=== PATIENT | female | born 1955 | race Caucasian/White ===

== ENCOUNTER 2019-07-08 12:07 | Emergency (ER) | payer BC, MEDICARE ==
[~2019-07-08] VITALS: Ht 162.6 cm; Wt 63.2 kg
[~2019-07-08 12:07] MED LIST: ARMOUR THYROID60 M1 PO; BUSPAR 15 MG TA15 MG PO; LOVASTATIN40 MG PO; MOBIC7.5 MG PO; PRILOSEC20 MG PO; RISPERDAL0.5 MG PO; ULTRAM50 MG PO
[2019-07-08 12:35] VITALS: Ht 162.6 cm; Wt 63.2 kg
[2019-07-08] MEDS ORDERED: BAYER CHEWABLE81 MG PO (12:38)
[2019-07-08 13:07] LABS: BASOPHILS 0.4 % (0-2); EOSINOPHILS 1.2 % (0-7); HEMOGLOBIN 14.5 g/dL (12-16); IMMATURE GRANULOCYTES 0.3 % (0-5); LYMPHOCYTES 21.3 % (15-50); MCH 31.2 pg (26.0-34.0); MCV 94.6 fL (80.0-100.0); MEAN PLATELET VOLUME 8.7 fL (7.4-10.4); MONOCYTES 6.2 % (2-11); NEUTROPHILS 70.6 % (40-80); RBC 4.65 10x6/uL (4.00-5.40); RDW 13.5 % (11.5-14.5); WBC 10.7 10x3/uL (4.8-10.8)
[2019-07-08 13:13] LABS: PLATELET COUNT 380 10x3/uL (130-400)
[2019-07-08 13:55] LABS: ALBUMIN 3.4 g/dL (3.4-5.0); ANION GAP 11.6 mmol/L (8-16); BILIRUBIN - TOTAL 0.23 mg/dL (0.2-1.3); CALCIUM 8.5 mg/dL (8.5-10.1); CARBON DIOXIDE 29.7 mmol/L (21.0-32.0); POTASSIUM - SERUM 4.3 mmol/L (3.5-5.1); PROTEIN - SERUM 6.9 g/dL (6.4-8.2)
[2019-07-08 16:48] VITALS: BP 129/80
== END 2019-07-08 16:48 | disposition home or self-care (01) ==
LOC: D.ER 12:07
PROVIDERS: Family Medicine
DX: M71.22 Synovial cyst of popliteal space [Baker], left knee (principal)

== ENCOUNTER 2019-07-17 08:00 | Outpatient (CLI) | payer BC ==
[2019-07-08 12:35] VITALS: BMI 23.9
[~2019-07-17 08:00] MED LIST changes: +BAYER CHEWABLE81 MG PO
== END 2019-07-17 23:59 | disposition home or self-care (01) ==
LOC: D.MAMMO 08:00
PROVIDERS: ATTEND Emergency Medicine
DX: Z12.31 Encounter for screening mammogram for malignant neoplasm of breast (principal)

== ENCOUNTER 2019-10-22 20:04 | Observation (INO) | payer BC, MEDICARE ==
[~2019-10-22] VITALS: Ht 162.6 cm; Wt 62.6 kg
[2019-10-22 21:24] LABS: BASOPHILS 0.4 % (0-2); EOSINOPHILS 1.1 % (0-7); HEMATOCRIT 39.9 % (36.0-48.0); HEMOGLOBIN 13.4 g/dL (12-16); IMMATURE GRANULOCYTES 0.2 % (0-5); MCH 30.9 pg (26.0-34.0); MCHC 33.6 g/dL (31.0-37.0); MCV 92.1 fL (80.0-100.0); MEAN PLATELET VOLUME 8.7 fL (7.4-10.4); MONOCYTES 6.3 % (2-11); PLATELET COUNT 363 10x3/uL (130-400); RBC 4.33 10x6/uL (4.00-5.40); RDW 13.8 % (11.5-14.5)
[2019-10-22 21:30] LABS: APTT 27.5 SECONDS (22.8-39.4); CALC OSMOLALITY 286 mosm/kg (275-300); CALCIUM 8.1 mg/dL (8.5-10.1); CHLORIDE - SERUM 106 mmol/L (98-107); GLUCOSE 99 mg/dL (74-106); POTASSIUM - SERUM 3.3 mmol/L (3.5-5.1); PROTIME 13.1 SECONDS (11.6-15.0); SODIUM 142 mmol/L (136-145); UREA NITROGEN 23 mg/dL (7-18); eGFR NON AFRICAN AMERICAN 59 mL/min (90-120)
[2019-10-22 21:47] LABS: ALKALINE PHOSPHATASE 135 U/L (30-120); ALT (SGPT) 18 U/L (10-68); BILIRUBIN - TOTAL 0.14 mg/dL (0.2-1.3); CKMB 4.5 U/L (0.0-3.6); CREATINE KINASE 163 UL (21-215); PRO BNP 104 pg/mL (0-125); PROTEIN - SERUM 6.7 g/dL (6.4-8.2)
[2019-10-22 21:51] LABS: TROPONIN-I < 0.017 ng/mL (0.000-0.060)
--- NOTE | 2019-10-22 22:30 | NUR ---
PT LEFT ED VIA STRETCHER FOR CT.
--- NOTE | 2019-10-22 22:48 | NUR ---
PT RETURNED FROM CT VIA STRETCHER.
[2019-10-23 00:38] VITALS: BP 151/77
--- NOTE | 2019-10-23 01:01 | NUR ---
ADMIT TO ROOM 2117 FROM ER FOR ATYPICAL CHEST PAIN. ALERT/ORIENTED/AMBULATORY. ADMISSION HISTORY AND ASSESSMENT COMPLETED. HOME MEDS REVIEWED. PLAN OF CARE INITIATED. TELEMETRY INITIATED.
[2019-10-23] MEDS ORDERED: LUNESTA1 MG PO (01:32)
[2019-10-23] MEDS ORDERED: NEURONTIN 300300 MG PO (01:34)
[2019-10-23 02:18] VITALS: BP 166/95; BMI 23.7
[2019-10-23 04:00] VITALS: BP 118/66
[2019-10-23 06:58] LABS: CKMB 3.5 U/L (0.0-3.6); CREATINE KINASE 143 UL (21-215); TROPONIN-I < 0.017 ng/mL (0.000-0.060)
--- NOTE | 2019-10-23 09:15 | NUR ---
LEAVING FOR STRESS TEST BY W/C. WILL CONT. PLAN OF CARE.
[2019-10-23 09:54] VITALS: BP 153/92
[2019-10-23 13:00] VITALS: BP 147/85
--- NOTE | 2019-10-23 13:18 | NUR ---
BACK TO UT FOR 2ND HALF STRESS TEST.
[2019-10-23 15:27] VITALS: Ht 162.6 cm; Wt 62.6 kg
[2019-10-23 16:51] VITALS: BP 160/87
--- NOTE | 2019-10-23 17:20 | HP ---
PATIENT: ANÍBAL KENNEDY MEDICAL RECORD: [id number] ACCOUNT: [id number] LOCATION:[address] : [birth year] ADMISSION DATE: 10/23/19 PCP: SANDRA MCKNIGHT MD HISTORY AND PHYSICAL EXAMINATION DIAGNOSES: 1. Chest pain compatible with angina. 2. Hypertension. 3. Family history of coronary artery disease. HISTORY OF PRESENT ILLNESS: Mrs. Kennedy has no history of ischemic heart disease. For the last week, she has been having episodes of chest discomfort compatible with angina, dull aching pressure-like sensation across the anterior chest, a band-like sensation across the chest. She has a family history of coronary artery disease. She has been hypertensive since she has been here. She does not have a history of hypertension. She does not have a history of hyperlipidemia. She does have a smoking history. PHYSICAL EXAMINATION: CONSTITUTIONAL/GENERAL APPEARANCE: Well nourished, well developed, appears stated age. EYES: Lids and conjunctivae noninjected. No discharge. No pallor. ENT: Lips within normal limit. No cyanosis. No pallor. NECK: Carotid arteries, bilateral normal upstroke. No bruits. No thrills. No jugular venous pressure or distention. CERVICAL LYMPH NODES: Nontender. Nonenlarged. THYROID: Not enlarged. No nodules. CARDIOVASCULAR: Precordial exam, nondisplaced. No heaves or pericardial thrills. Rate and rhythm, regular. Heart sounds, normal S1, normal S2. No S3, no gallop, no rub. Systolic murmur, not heard. Diastolic murmur, not heard. RESPIRATORY: Respiratory effort, unlabored. Normal curvature. No thoracic deformity. No chest wall tenderness. Percussion, resonant. Auscultation, clear. No wheezes, no rales, no rhonchi. ABDOMEN: Soft, nondistended, nontender. No abdominal pain, no vomiting and normal appetite. MUSCULOSKELETAL: No joint tenderness, normal gait, normal tone. SKIN: Warm and dry. OVERALL IMPRESSION: Chest pain compatible with angina. We will proceed with risk stratify with stress testing Cardiolite imaging. Further care depends upon the findings of stress test. TRANSINT:[id number] Voice Confirmation ID: [id number] DOCUMENT ID: [id number] HISTORY AND PHYSICAL [id number] JOANIEADÁNANÍBALPADMA MORTON MD at 1720 CC: [id number] DICTATION DATE: 10/23/19 0938 UTILIZATION REVIEW RN: 10/23/19 1037 ADM IN [place] [id number] [place] [id number]
--- NOTE | 2019-10-23 18:05 | NUR ---
IV AND TELEMETRY DCD. DC PLANS GIVEN. UNDERSTANDING VOICED. ESCORTED TO CAR BY W/C.
--- NOTE | 2019-10-24 08:05 | MORECARE ---
CASE MANAGEMENT DISCHARGE SUMMARY PATIENT: ANÍBAL NAIR BELKYS UNIT: [id number] ADM DATE: 10/23/19 AGE: 63 : 51 SEX: F ROOM/BED: D.9057 AUTHOR: CINDY LARKIN PHYSICIAN: REFERRING PHYSICIAN: PADMA MCDANIELS MD DATE OF SERVICE: 10/24/19 Discharge Plan Patient Name: AN[facility]BAL NAIR [facility] [facility] 1955 Planned Disposition: Home Anticipated Discharge Date: 10/23/19 Discharge Date: 10/23/2019 Expected LOS: 1 Initial Reviewer: [email or web address] Initial Review Date: 10/24/2019 Generated: 10/24/19 9:04 am Patient Name: ANÍBAL NAIR Page [id number] at 0805 All edits/amendments must be made on the electronic document DICTATION DATE: 10/24/19 0804 CISCO NETWORK ENGINEER: ILIANA 10/24/19 0804 RPT#: [id number] DC DATE:10/23/19 STATUS: DIS IN [facility] [address] [place] [address] END OF REPORT
--- NOTE | 2019-10-24 11:25 | ST ---
PATIENT:ANÍBAL NAIR MEDICAL RECORD: [id number] SEX: F [facility] ORDER #: ADMISSION DATE: 10/23/19 AGE OF PATIENT: 63 REFERRING PHYSICIAN: INTERPRETING PHYSICIAN: PADMA MCDANIELS MD DATE OF SERVICE: 10/23/2019 PROCEDURE: Nuclear stress test. INDICATION: Chest pain. TECHNIQUE: She was exercised on standard Lexiscan protocol with 30 mCi of sestamibi injected at peak stress, 10 mCi used previously for rest images. FINDINGS: Gated SPECT reveals preserved ejection fraction at 51% with good wall motion and thickening and brightening throughout all segments. SPECT imaging Cardiolite was used as myocardial fusion agent. There is homogeneous uptake throughout all segments at rest and stress with no evidence of inducible ischemia or previous infarction. OVERALL IMPRESSION: 1. This is a normal nuclear stress test with no evidence of inducible ischemia or previous infarction. 2. Gated SPECT reveals a preserved ejection fraction at 51%. In this patient with ongoing symptomatology, the current scan does not suggest the presence of hemodynamically significant coronary artery disease. Evaluate noncardiac etiology of chest pain. TRANSINT:[id number] Voice Confirmation ID: [id number] DOCUMENT ID: [id number] PADMA MCDANIELS MD at 1125 CC: [id number] DICTATION DATE: 10/23/19 1719 INCIDENT RESPONSE LEAD: 10/24/19 0812 DIS IN 10/23/19 [place] [id number] [place] [address]
--- NOTE | 2019-10-24 11:25 | DS ---
PATIENT:ANÍBAL NAIR :51 MEDICAL RECORD: [id number] DISCHARGE SUMMARY ADMISSION DATE: 10/23/19 DISCHARGE DATE: 10/23/19 DIAGNOSES: 1. Chest pain. 2. Nuclear stress test. Ms. Nair presents with chest pain; however, nuclear stress test was absolutely normal. Discharged home with no change in her medication and follow up on a p.r.n. basis. TRANSINT:[id number] Voice Confirmation ID: [id number] DOCUMENT ID: [id number] PADMA MCDANIELS MD at 1125 CC: [id number] DICTATION DATE: 10/23/19 1718 THIRD RIGGER: 10/24/19 0802 DIS IN 10/23/19 [place] [address] [place] [address]
== END 2019-10-23 18:06 | disposition home or self-care (01) ==
LOC: D.ER 20:04 → OBSVTIME 10-23 00:04 → D.M2 10-23 00:04
PROVIDERS: Emergency Medicine; ADMIT Internal Medicine Interventional Cardiology; ATTEND Internal Medicine Interventional Cardiology
DX: R07.9 Chest pain, unspecified (principal); I10 Essential (primary) hypertension; Z82.49 Family history of ischemic heart disease and other diseases of the circulatory system

== ENCOUNTER 2021-02-23 10:20 | Emergency (ER) | payer BC, MEDICARE ==
[~2021-02-23] VITALS: Ht 162.6 cm; Wt 76.4 kg
[~2021-02-23 10:20] MED LIST changes: +LUNESTA1 MG PO; +NEURONTIN 300300 MG PO; -RISPERDAL0.5 MG PO; +RISPERDAL1 MG PO
[2021-02-23 10:24] VITALS: Ht 162.6 cm; Wt 76.4 kg
[2021-02-23 11:10] LABS: BASOPHILS 0.3 % (0-2); EOSINOPHILS 0.2 % (0-7); HEMATOCRIT 38.7 % (36.0-48.0); HEMOGLOBIN 11.9 g/dL (12-16); LYMPHOCYTES 11.1 % (15-50); MCH 25.8 pg (26.0-34.0); MCHC 30.9 g/dL (31.0-37.0); MCV 83.5 fL (80.0-100.0); MEAN PLATELET VOLUME 6.7 fL (7.4-10.4); NEUTROPHILS 82.4 % (40-80); PLATELET COUNT 371 10x3/uL (130-400); RBC 4.64 10x6/uL (4.00-5.40); RDW 18.7 % (11.5-14.5); WBC 14.5 10x3/uL (4.8-10.8)
[2021-02-23 11:20] LABS: CALC OSMOLALITY 281 mosm/kg (275-300); CALCIUM 8.3 mg/dL (8.5-10.1); CARBON DIOXIDE 36.1 mmol/L (21.0-32.0); CHLORIDE - SERUM 100 mmol/L (98-107); POTASSIUM - SERUM 4.3 mmol/L (3.5-5.1); SODIUM 138 mmol/L (136-145); UREA NITROGEN 20 mg/dL (7-18); eGFR NON AFRICAN AMERICAN 58 mL/min (90-120)
[2021-02-23 11:21] LABS: GLUCOSE 150 mg/dL (74-106); INR 1.11 (0.85-1.17); PROTIME 13.2 SECONDS (11.6-15.0)
[2021-02-23 11:37] LABS: ALBUMIN 3.1 g/dL (3.4-5.0); ALKALINE PHOSPHATASE 96 U/L (30-120); ALT (SGPT) 27 U/L (10-68); BILIRUBIN - TOTAL 0.31 mg/dL (0.2-1.3); CREATINE KINASE 102 UL (21-215); MAGNESIUM - SERUM 1.9 mg/dL (1.8-2.4); PROTEIN - SERUM 6.7 g/dL (6.4-8.2); THYROID STIMULATING HORMONE 2.04 uIU/mL (0.36-3.74); TROPONIN-I 0.048 ng/mL (0.000-0.060)
[2021-02-23 13:17] LABS: BILIRUBIN NEGATIVE (NEGATIVE); KETONE NEGATIVE (NEGATIVE); NITRITE NEGATIVE (NEGATIVE); SQUAMOUS EPITHELIAL 0-5 HPF (0-4); UROBILINOGEN NORMAL mg/dL (< 2)
[2021-02-23 13:20] LABS: WHITE CELLS - URINE 0-5 HPF (0-4)
[2021-02-23 13:21] LABS: UDS - AMPHET NEGATIVE QUAL (NEGATIVE); UDS - BARB NEGATIVE QUAL (NEGATIVE); UDS - BENZO NEGATIVE QUAL (NEGATIVE); UDS - COCAINE NEGATIVE QUAL (NEGATIVE); UDS - OPIATE NEGATIVE QUAL (NEGATIVE); UDS - PCP NEGATIVE QUAL (NEGATIVE); UDS - THC NEGATIVE QUAL (NEGATIVE)
[2021-02-23 13:22] LABS: BACTERIA MOD HPF (NONE SEEN)
[2021-02-23 13:23] LABS: AMORPHOUS SEDIMENT FEW LPF (NONE SEEN)
[2021-02-23 13:30] VITALS: BP 132/72
[2021-02-23] MEDS ORDERED: IBUPROFEN800 MG PO (13:53)
[2021-02-23] MEDS ORDERED: ACETAMINOPHEN500 M1 PO (13:53)
[2021-02-23] MEDS ORDERED: CYCLOBENZAPRINE5 MG PO (13:53)
[2021-02-24] MEDS ORDERED: SINGULAIR10 MG PO (14:34)
[2021-03-02] MEDS ORDERED: LEVOFLOXACIN500 MG PO (13:23)
== END 2021-03-07 15:44 | disposition home or self-care (01) ==
LOC: D.ER 10:20
PROVIDERS: Family Medicine
DX: R60.9 Edema, unspecified (principal); W01.10XA Fall on same level from slipping, tripping and stumbling with subsequent striking against unspecified object, initial encounter; Y93.9 Activity, unspecified; Y92.9 Unspecified place or not applicable; R41.82 Altered mental status, unspecified; Z86.73 Personal history of transient ischemic attack (TIA), and cerebral infarction without residual deficits; K21.9 Gastro-esophageal reflux disease without esophagitis; M25.551 Pain in right hip; M25.552 Pain in left hip; M54.2 Cervicalgia; R51.9 Headache, unspecified

== ENCOUNTER 2021-02-24 11:26 | Inpatient (IN) | payer BC, MEDICARE ==
[~2021-02-24] VITALS: Ht 162.6 cm; Wt 76.6 kg
[2021-02-24] VITALS (37 sets, daily range): BP systolic 70–154; BP diastolic 41–107; BMI 29.6
[~2021-02-24 11:26] MED LIST changes: +ACETAMINOPHEN500 M1 PO; +CYCLOBENZAPRINE5 MG PO; +IBUPROFEN800 MG PO
[2021-02-24 12:01] LABS: BASOPHILS 0.1 % (0-2); EOSINOPHILS 0 % (0-7); HEMATOCRIT 42.4 % (36.0-48.0); HEMOGLOBIN 12.7 g/dL (12-16); MCH 26.1 pg (26.0-34.0); MEAN PLATELET VOLUME 6.8 fL (7.4-10.4); NEUTROPHILS 88.9 % (40-80); PLATELET COUNT 373 10x3/uL (130-400); RBC 4.88 10x6/uL (4.00-5.40); RDW 18.8 % (11.5-14.5); WBC 17.6 10x3/uL (4.8-10.8)
[2021-02-24 12:03] LABS: MCV 86.9 fL (80.0-100.0)
[2021-02-24 12:08] LABS: CALC OSMOLALITY 283 mosm/kg (275-300); CALCIUM 8.2 mg/dL (8.5-10.1); CARBON DIOXIDE 32.9 mmol/L (21.0-32.0); CHLORIDE - SERUM 102 mmol/L (98-107); GLUCOSE 138 mg/dL (74-106); SODIUM 139 mmol/L (136-145); UREA NITROGEN 25 mg/dL (7-18)
[2021-02-24 12:15] LABS: CREATININE - SERUM 2.1 mg/dL (0.6-1.3); eGFR NON AFRICAN AMERICAN 25 mL/min (90-120)
[2021-02-24 12:21] LABS: APTT 27.8 SECONDS (22.8-39.4); INR 1.09 (0.85-1.17)
[2021-02-24 12:22] LABS: ALBUMIN 3.1 g/dL (3.4-5.0); ALKALINE PHOSPHATASE 112 U/L (30-120); ALT (SGPT) 31 U/L (10-68); BILIRUBIN - TOTAL 0.29 mg/dL (0.2-1.3); TROPONIN-I 0.036 ng/mL (0.000-0.060)
[2021-02-24 12:23] LABS: ALCOHOL - BLOOD (MEDICAL) < 3.0 mg/dL (0.0-10.0)
--- NOTE | 2021-02-24 14:00 | NUR ---
PT ARRIVED ON UNIT VIA STRETCHER, HOOKED TO MONITORS,
[2021-02-24] MEDS ORDERED: SINGULAIR10 MG PO (14:34)
--- NOTE | 2021-02-24 16:50 | NUR ---
CAREY PLACED AT THIS TIME, UC, UA SENT TO LAB
[2021-02-24 17:04] LABS: BILIRUBIN NEGATIVE (NEGATIVE); KETONE NEGATIVE (NEGATIVE); NITRITE NEGATIVE (NEGATIVE); UROBILINOGEN NORMAL mg/dL (< 2)
[2021-02-24 17:12] LABS: SQUAMOUS EPITHELIAL 0-5 HPF (0-4); UDS - AMPHET NEGATIVE QUAL (NEGATIVE); UDS - BARB NEGATIVE QUAL (NEGATIVE); UDS - BENZO NEGATIVE QUAL (NEGATIVE); UDS - COCAINE NEGATIVE QUAL (NEGATIVE); UDS - OPIATE NEGATIVE QUAL (NEGATIVE); UDS - PCP NEGATIVE QUAL (NEGATIVE); UDS - THC NEGATIVE QUAL (NEGATIVE); WHITE CELLS - URINE 0-5 HPF (0-4)
[2021-02-24 17:13] LABS: BACTERIA MOD HPF (NONE SEEN); GRANULAR CAST 0-5 LPF (NONE SEEN)
[2021-02-25] VITALS (43 sets, daily range): BP systolic 103–158; BP diastolic 46–95; Ht 162.6 cm; Wt 76.6 kg
--- NOTE | 2021-02-25 01:50 | NUR ---
PT HAS BEEN INTUBATED AND ON SEDATION, RIGHT BRACHIAL ARTERIAL LINE, SECURED. LEFT SUBCLAVIAN 3 LUMEN CVL PLACED. IV FLUIDS STARTED AFTER PLACEMENT CONFIRMED BY XRAY. CVP AND ALLEN FUNCTIONING. SOME LEAKING NOTED TO ALLEN WHEN FLUSHING TUBING TIGHTENED AND DRESSING CHANGED USING STERILE TECHNIQUE. PT SEDATED NOT RESPONDING TO STIMULI AT THIS TIME. ON LEVOPHED. DR MOREIRA CALL TO GET UPDATE. RECEIVED ORDERS TO MAINTAIN LEVOPHED AND INCREASE VENT RATE FROM 18 TO 20BPM. PT WITH BM. PERICARE AND CHG BATH PROVIDED WITH COMPLETE LINEN CHANGE PROVIDED. BM SOFT UNFORMED.
[2021-02-25 05:26] LABS: BASOPHILS 0.1 % (0-2); EOSINOPHILS 0 % (0-7); HEMATOCRIT 37.5 % (36.0-48.0); HEMOGLOBIN 11.3 g/dL (12-16); LYMPHOCYTES 6.6 % (15-50); MCH 25.5 pg (26.0-34.0); MCHC 30.1 g/dL (31.0-37.0); MEAN PLATELET VOLUME 7.6 fL (7.4-10.4); MONOCYTES 4.4 % (2-11); NEUTROPHILS 88.9 % (40-80); PLATELET COUNT 310 10x3/uL (130-400); RBC 4.42 10x6/uL (4.00-5.40); RDW 18.7 % (11.5-14.5); WBC 17.6 10x3/uL (4.8-10.8)
[2021-02-25 05:38] LABS: MCV 84.7 fL (80.0-100.0)
[2021-02-25 05:46] LABS: ALBUMIN 2.4 g/dL (3.4-5.0); ANION GAP 10.9 mmol/L (8-16); BILIRUBIN - TOTAL 0.27 mg/dL (0.2-1.3); CALCIUM 7.3 mg/dL (8.5-10.1); CARBON DIOXIDE 26.7 mmol/L (21.0-32.0); CREATININE - SERUM 1.2 mg/dL (0.6-1.3); POTASSIUM - SERUM 4.6 mmol/L (3.5-5.1); PROTEIN - SERUM 5.7 g/dL (6.4-8.2)
--- NOTE | 2021-02-25 10:00 | NUR ---
Nutrition consult: Received verbal order from Dr. Gray to begin Pulmocare today. RDN will order Pulmocare to begin @ 15 ml/hr with gradual increase to goal rate of 40 ml/hr; flush with 100 ml H2O q 4 hours to provide: 1440 kcal, 60 gm protein, 754 ml free fluid 77-92% estimated kcal needs; 97-120% estimated protein needs; 1354 ml fluid RDN will monitor patients TF tolerance and progress toward nutrition goals within 1-2 days.
--- NOTE | 2021-02-25 12:31 | NUR ---
TUBE FEEDING INITIATED. PULMOCARE 20ML/HR.
[2021-02-26] VITALS (24 sets, daily range): BP systolic 105–192; BP diastolic 68–122
--- NOTE | 2021-02-26 03:36 | NUR ---
PT CHG BATH GIVEN WITH COMPLETE LINEN CHANGE. CVL DRESSING CHANGED, PER PROTOCOL.
[2021-02-26 10:06] LABS: HEMATOCRIT 40.7 % (36.0-48.0); HEMOGLOBIN 13.1 g/dL (12-16); LYMPHOCYTE ABS# 2.51 10x3/uL (1.18-3.74); MCH 26.8 pg (26.0-34.0); MCHC 32.2 g/dL (31.0-37.0); MCV 83.2 fL (80.0-100.0); MEAN PLATELET VOLUME 9.4 fL (7.4-10.4); NEUTROPHIL ABS# 17.89 10x3/uL (1.56-6.13); PLATELET COUNT 357 10x3/uL (130-400); RBC 4.89 10x6/uL (4.00-5.40); RDW 18.3 % (11.5-14.5); WBC 22.5 10x3/uL (4.8-10.8)
[2021-02-26 10:10] LABS: CALC OSMOLALITY 281 mosm/kg (275-300); CALCIUM 7.9 mg/dL (8.5-10.1); CHLORIDE - SERUM 107 mmol/L (98-107); CREATININE - SERUM 0.7 mg/dL (0.6-1.3); GLUCOSE 116 mg/dL (74-106); SODIUM 140 mmol/L (136-145); UREA NITROGEN 19 mg/dL (7-18); eGFR NON AFRICAN AMERICAN 88 mL/min (90-120)
[2021-02-26 10:12] LABS: HEPATITIS C ANTIBODY <0.1 S/CO RAT (0.0-0.9)
[2021-02-26 10:40] LABS: BASOPHILS 1 % (0-2); LYMPHOCYTES 7 % (15-50); MONOCYTES 7 % (2-11); NEUTROPHILS 83 % (40-80); PLATELET ESTIMATE NORMAL
[2021-02-27] VITALS (9 sets, daily range): BP systolic 125–160; BP diastolic 74–102
[2021-02-27 05:22] LABS: BASOPHILS 0.5 % (0-2); EOSINOPHILS 0.4 % (0-7); HEMOGLOBIN 11.2 g/dL (12-16); LYMPHOCYTES 12.2 % (15-50); MCH 25.9 pg (26.0-34.0); MCHC 31.1 g/dL (31.0-37.0); MCV 83.1 fL (80.0-100.0); MEAN PLATELET VOLUME 8.1 fL (7.4-10.4); MONOCYTES 6.1 % (2-11); NEUTROPHILS 80.8 % (40-80); PLATELET COUNT 348 10x3/uL (130-400); RBC 4.33 10x6/uL (4.00-5.40)
[2021-02-27 05:33] LABS: WBC 16.1 10x3/uL (4.8-10.8)
[2021-02-27 05:37] LABS: CALCIUM 7.9 mg/dL (8.5-10.1); CHLORIDE - SERUM 105 mmol/L (98-107); CREATININE - SERUM 0.6 mg/dL (0.6-1.3); GLUCOSE 78 mg/dL (74-106); SODIUM 144 mmol/L (136-145); eGFR NON AFRICAN AMERICAN > 90 mL/min (90-120)
[2021-02-27 05:40] LABS: CALC OSMOLALITY 284 mosm/kg (275-300); POTASSIUM - SERUM 3.2 mmol/L (3.5-5.1); UREA NITROGEN 10 mg/dL (7-18)
--- NOTE | 2021-02-27 10:30 | NUR ---
PT ARRIVED TO UNIT. SKIN WNL. SOME BRUISING ON EXTREMITIES. ICE WATER GIVEN. SCD'S ON. BED ALARM ON. CL IN REACH. DAUGHTER CALLED TO GIVE NEW ROOM NUMBER AND TELEPHONE NUMBER. MARCOS
--- NOTE | 2021-02-27 10:33 | NUR ---
Nutrition reassessment: Pt extubated; diet advanced to regular mechanical soft per speech path recommendations. PO intake poor at this time. Labs reviewed Wt: 168# Estimated nutrition needs based on AdjBW of 60 [id number] kcal (25-30 kcal/kg AdjBW) 60-75 gm protein (1.0-1.2 gm/kg AdjBW) 2407-3175 ml fluid (or per MD) Nutrition diagnoisis: Inadequate oral intake R/T just extubated AEB observed poor po intake at this time. Nutrition goals: - PO intake will increase to =/> 75% of meals, snacks - Meet est fluid needs without overload - Stable dry wt Nutrition interventions: Will provide food choices with selective menus and honor food preferences. Will offer nutritional supplements. RDN will follow-up on progress toward nutrition goals in 3-5 days.
--- NOTE | 2021-02-27 20:00 | NUR ---
ALERT SITTING UP IN BED, FAMILY AT BEDSIDE, DENIES NEEDS AT THIS TIME, O2 IN USE, SEE SHIFT ASSESSSMENT, CALL LIGHT IN REACH
[2021-02-28] VITALS: BP 130/75
[2021-02-28 04:00] VITALS: BP 129/70
[2021-02-28 06:01] LABS: BASOPHILS 0.8 % (0-2); EOSINOPHILS 2.4 % (0-7); HEMATOCRIT 36.8 % (36.0-48.0); HEMOGLOBIN 11.7 g/dL (12-16); LYMPHOCYTES 16.4 % (15-50); MCH 26.4 pg (26.0-34.0); MCHC 31.8 g/dL (31.0-37.0); MEAN PLATELET VOLUME 7.6 fL (7.4-10.4); MONOCYTES 8.4 % (2-11); PLATELET COUNT 367 10x3/uL (130-400); RBC 4.44 10x6/uL (4.00-5.40); RDW 19.1 % (11.5-14.5); WBC 12.2 10x3/uL (4.8-10.8)
[2021-02-28 06:33] LABS: ALBUMIN 2.5 g/dL (3.4-5.0); ALKALINE PHOSPHATASE 103 U/L (30-120); ALT (SGPT) 50 U/L (10-68); BILIRUBIN - TOTAL 0.39 mg/dL (0.2-1.3); CALC OSMOLALITY 281 mosm/kg (275-300); CALCIUM 8.4 mg/dL (8.5-10.1); CHLORIDE - SERUM 103 mmol/L (98-107); CREATININE - SERUM 0.6 mg/dL (0.6-1.3); GLUCOSE 100 mg/dL (74-106); POTASSIUM - SERUM 3.2 mmol/L (3.5-5.1); PROTEIN - SERUM 6.5 g/dL (6.4-8.2); SODIUM 142 mmol/L (136-145); UREA NITROGEN 11 mg/dL (7-18); eGFR NON AFRICAN AMERICAN > 90 mL/min (90-120)
--- NOTE | 2021-02-28 08:52 | NUR ---
PT ASSISTED TO BATHROOM AND BACK TO CHAIR. CL IN REACH. PHONE IN REACH. POSSE ALARM ON. WCTM
[2021-02-28 09:14] VITALS: BP 149/89
[2021-02-28 13:24] VITALS: BP 131/73
--- NOTE | 2021-02-28 15:30 | NUR ---
PT REQUESTED TO WALK AROUND UNIT. STAND BY ASSIST. CL IN REACH. WCTM
[2021-02-28 18:05] VITALS: BP 169/87
[2021-03-01 06:39] LABS: BASOPHILS 0.6 % (0-2); EOSINOPHILS 3.9 % (0-7); HEMATOCRIT 35.7 % (36.0-48.0); HEMOGLOBIN 11.4 g/dL (12-16); LYMPHOCYTES 18.3 % (15-50); MCH 26.6 pg (26.0-34.0); MCHC 31.9 g/dL (31.0-37.0); MCV 83.4 fL (80.0-100.0); MEAN PLATELET VOLUME 7.1 fL (7.4-10.4); MONOCYTES 10.9 % (2-11); NEUTROPHILS 66.3 % (40-80); PLATELET COUNT 380 10x3/uL (130-400); RBC 4.28 10x6/uL (4.00-5.40); RDW 18.9 % (11.5-14.5); WBC 10.8 10x3/uL (4.8-10.8)
[2021-03-01 06:59] LABS: ALBUMIN 2.5 g/dL (3.4-5.0); ALKALINE PHOSPHATASE 94 U/L (30-120); ALT (SGPT) 44 U/L (10-68); BILIRUBIN - TOTAL 0.21 mg/dL (0.2-1.3); CALC OSMOLALITY 289 mosm/kg (275-300); CALCIUM 8.3 mg/dL (8.5-10.1); CARBON DIOXIDE 35.4 mmol/L (21.0-32.0); CHLORIDE - SERUM 109 mmol/L (98-107); CREATININE - SERUM 0.7 mg/dL (0.6-1.3); GLUCOSE 99 mg/dL (74-106); PROTEIN - SERUM 5.7 g/dL (6.4-8.2); SODIUM 146 mmol/L (136-145); UREA NITROGEN 11 mg/dL (7-18); eGFR NON AFRICAN AMERICAN 88 mL/min (90-120)
[2021-03-01 07:06] LABS: POTASSIUM - SERUM 3.7 mmol/L (3.5-5.1)
[2021-03-01 11:59] VITALS: BP 169/64
[2021-03-01 17:46] VITALS: BP 160/86
[2021-03-01 22:16] VITALS: BP 157/102
[2021-03-02 00:08] VITALS: BP 159/93
[2021-03-02 04:37] VITALS: BP 163/93
[2021-03-02 07:14] LABS: BASOPHILS 0.4 % (0-2); HEMATOCRIT 34.7 % (36.0-48.0); HEMOGLOBIN 11.2 g/dL (12-16); LYMPHOCYTES 14.4 % (15-50); MCH 26.9 pg (26.0-34.0); MCHC 32.3 g/dL (31.0-37.0); MCV 83.2 fL (80.0-100.0); MEAN PLATELET VOLUME 7.8 fL (7.4-10.4); MONOCYTES 11.5 % (2-11); NEUTROPHILS 70.7 % (40-80); PLATELET COUNT 398 10x3/uL (130-400); RBC 4.17 10x6/uL (4.00-5.40); RDW 18.8 % (11.5-14.5); WBC 12.8 10x3/uL (4.8-10.8)
[2021-03-02 08:04] LABS: ALBUMIN 2.5 g/dL (3.4-5.0); ALKALINE PHOSPHATASE 91 U/L (30-120); ALT (SGPT) 49 U/L (10-68); BILIRUBIN - TOTAL 0.25 mg/dL (0.2-1.3); CALC OSMOLALITY 288 mosm/kg (275-300); CALCIUM 8.1 mg/dL (8.5-10.1); CARBON DIOXIDE 35.1 mmol/L (21.0-32.0); CHLORIDE - SERUM 107 mmol/L (98-107); CREATININE - SERUM 0.5 mg/dL (0.6-1.3); GLUCOSE 95 mg/dL (74-106); PROTEIN - SERUM 5.7 g/dL (6.4-8.2); SODIUM 145 mmol/L (136-145); UREA NITROGEN 12 mg/dL (7-18); eGFR NON AFRICAN AMERICAN > 90 mL/min (90-120)
[2021-03-02 09:11] VITALS: BP 189/110
[2021-03-02 12:51] VITALS: BP 127/77
[2021-03-02] MEDS ORDERED: LEVOFLOXACIN500 MG PO (13:23)
--- NOTE | 2021-03-02 15:00 | NUR ---
CENTRAL LINE DISCONTINUED WITH PRESSURE DRESSING APPLIED. PATIENT VERBALIZED UNDERSTANDING OF DISCHARGE INSTRUCTIONS. STABLE AT TIME OF DISCHARGE.
--- NOTE | 2021-03-02 16:04 | MORECARE ---
CASE MANAGEMENT DISCHARGE SUMMARY PATIENT: ANÍBAL NAIR UNIT: [id number] ADM DATE: 02/24/21 AGE: 65 : 53 SEX: F ROOM/BED: D.2236 AUTHOR: CINDY LARKIN PHYSICIAN: REFERRING PHYSICIAN: KENIA DELVALLE MD DATE OF SERVICE: 03/02/21 Case Management Discharge Planning Summary DCP REVIEW SUMMARY ANTICIPATED D/C DATE: 03/02/2021 EXPECTED LOS : 6 CASE STATUS: DCP Complete INITIAL REVIEW: 02/24/2021 INITIAL REVIEWER: Simran Dewey FINAL DISCHARGE DISPOSITION: : FINAL REVIEWER: FINAL REVIEW DATE: DCP Focus Questions & Answers DCP Screen QUESTION: ANSWER High Risk Factors: : Decreased adherence to treatment plan DCP Evaluation QUESTION: ANSWER Family / Caregiver's ability to cope with chronic illness: : a. Adequate (ability to meet patient's medical needs, ensures patient attends medical appts.) Patient's ability to cope with chronic illness : a. Adequate (0-3 ED visits in 6 mos., adequate financial resources, attends scheduled appts.) Patient's current cognitive status: : *Oriented to person, place, situation, time and present Patient and/or caregiver agree upon recommended discharge plan? : Yes Physical Status: : Partial care dependence Family / Caregiver's ability to cope with chronic illness: : a. Adequate (ability to meet patient's medical needs, ensures patient attends medical appts.) Functional screen assessment: : New onset in difficulty speaking Does the patient have the ability to pay for or attain post discharge needs / services? : Yes Partial Dependence, assistance required for: : Bathing Living Arrangements: : Home with others Is there a likelihood that the patient will require additional services to return to the preadmission environment? : Yes Functional screen comments: : Patient states she needs assistance with ADLs Living arrangements comments: : Lives with daughter and son in law Baseline cognitive status: : *Oriented to person, place, situation, time and present Baseline cognitive status: : Alert Patient with capacity for self-care or can be cared for in same environment as prior to hospitalization? : No Results of this evaluation have been discussed with: : Patient Physical environment modification needed / anticipated for discharge: : No Medication Management: : Patient states can afford medications Pharmacy name(s): : [facility] Planned post hospital services available for patient? : Yes Does Patient have transportation to get home and to follow-up medical appointments when discharged from the hospital? : Yes Planned post hospital services covered by insurance plan? : Yes Would patient like to participate in any Care Coordination programs (if applicable): : Not applicable Does the patient have electricity at home? : Yes Does the patient have running water in their house? : Yes Equipment in use: : Home Oxygen with Nasal Cannula Equipment in use: : Shower Chair Equipment in use: : Walker - Standard Equipment agency name and contact information: : [facility] health screen: : No mental health history DCP Re-evaluation QUESTION: ANSWER Would patient like to participate in any Care Coordination programs (if applicable): : Not applicable PATIENT: ANÍBAL NAIR ENCOUNTER: [id number] MEDICAL RECORD#: [id number] ADMISSION DATE: 02/24/2021 DISCHARGE DATE: 03/02/2021 ATTENDING MD: KENIA HUTCHINSON : AGE: 65 MARITAL STATUS: X DC PLAN ID: [id number] FACILITY: [facility] PRINTED ON: 03/02/21 16:04 CT All edits/amendments must be made on the electronic document DICTATION DATE: 03/02/211603 GRANULATING BLENDER: ILIANA 03/02/21 160 RPT#: [id number] DC DATE:03/02/21 STATUS: DIS IN [facility] [address] [place] [address] END OF REPORT
--- NOTE | 2021-03-02 16:15 | MORECARE ---
CASE MANAGEMENT DISCHARGE SUMMARY PATIENT: ANÍBAL NAIR UNIT: [id number] ADM DATE: 02/24/21 AGE: 65 : 53 SEX: F ROOM/BED: D.2236 AUTHOR: CHAYA,DOC PHYSICIAN: REFERRING PHYSICIAN: KENIA DELVALLE MD DATE OF SERVICE: 03/02/21 Case Management Discharge Planning Summary COMMENTS ENTERED DATE: 03/02/21 16:04 CT COMMENT TYPE: Discharge Planning REVIEWER: Simran Dewey CM spoke with patient to discuss discharge plan. Patient stated she lives with her daughter (Jatin [phone]) and her son-in law. Jatin will provide transportation for patient after discharge and bring her home O2 supply. Patient stated she currently utilizes [facility] for home O2 services and plans to resume care. Patient states she has a walker and shower chair and requests home health services for assistance with ADLs. ALBA obtained and signed for [facility]. IMM also signed, placed in chart and copy provided to patient. Notified [facility] of new referral and spoke with Ewa. Ewa stated the SOC will be 03/05/21. CM will continue to follow. DCP REVIEW SUMMARY ANTICIPATED D/C DATE: 03/02/2021 EXPECTED LOS : 6 CASE STATUS: DCP Complete INITIAL REVIEW: 02/24/2021 INITIAL REVIEWER: Simran Dewey FINAL DISCHARGE DISPOSITION: : FINAL REVIEWER: FINAL REVIEW DATE: DCP Focus Questions & Answers DCP Screen QUESTION: ANSWER High Risk Factors: : Decreased adherence to treatment plan DCP Evaluation QUESTION: ANSWER Family / Caregiver's ability to cope with chronic illness: : a. Adequate (ability to meet patient's medical needs, ensures patient attends medical appts.) Patient's ability to cope with chronic illness : a. Adequate (0-3 ED visits in 6 mos., adequate financial resources, attends scheduled appts.) Patient's current cognitive status: : *Oriented to person, place, situation, time and present Patient and/or caregiver agree upon recommended discharge plan? : Yes Physical Status: : Partial care dependence Family / Caregiver's ability to cope with chronic illness: : a. Adequate (ability to meet patient's medical needs, ensures patient attends medical appts.) Functional screen assessment: : New onset in difficulty speaking Does the patient have the ability to pay for or attain post discharge needs / services? : Yes Partial Dependence, assistance required for: : Bathing Living Arrangements: : Home with others Is there a likelihood that the patient will require additional services to return to the preadmission environment? : Yes Functional screen comments: : Patient states she needs assistance with ADLs Living arrangements comments: : Lives with daughter and son in law Baseline cognitive status: : *Oriented to person, place, situation, time and present Baseline cognitive status: : Alert Patient with capacity for self-care or can be cared for in same environment as prior to hospitalization? : No Results of this evaluation have been discussed with: : Patient Physical environment modification needed / anticipated for discharge: : No Medication Management: : Patient states can afford medications Pharmacy name(s): : [facility] Planned post hospital services available for patient? : Yes Does Patient have transportation to get home and to follow-up medical appointments when discharged from the hospital? : Yes Planned post hospital services covered by insurance plan? : Yes Would patient like to participate in any Care Coordination programs (if applicable): : Not applicable Does the patient have electricity at home? : Yes Does the patient have running water in their house? : Yes Equipment in use: : Home Oxygen with Nasal Cannula Equipment in use: : Shower Chair Equipment in use: : Walker - Standard Equipment agency name and contact information: : [facility] Mental [facility] screen: : No mental health history DCP Re-evaluation QUESTION: ANSWER Would patient like to participate in any Care Coordination programs (if applicable): : Not applicable PATIENT: ANÍBAL NAIR ENCOUNTER: [id number] MEDICAL RECORD#: [id number] ADMISSION DATE: 02/24/2021 DISCHARGE DATE: 03/02/2021 ATTENDING MD: KENIA HUTCHINSON : AGE: 65 MARITAL STATUS: X DC PLAN ID: [id number] FACILITY: [facility] PRINTED ON: 03/02/21 16:15 CT All edits/amendments must be made on the electronic document DICTATION DATE: 03/02/211614 EXPERIMENTAL OUTBOARD MOTORS MECHANIC: ILIANA 03/02/211614 RPT#: [id number] DC DATE:03/02/21 STATUS: DIS IN [facility] [address] [place] [address] END OF REPORT
--- NOTE | 2021-03-03 08:31 | MORECARE ---
CASE MANAGEMENT DISCHARGE SUMMARY PATIENT: ANÍBAL NAIR UNIT: [id number] ADM DATE: 02/24/21 AGE: 65 : 53 SEX: F ROOM/BED: D.2236 AUTHOR: CHAYA,DOC PHYSICIAN: REFERRING PHYSICIAN: KENIA DELVALLE MD DATE OF SERVICE: 03/03/21 Case Management Discharge Planning Summary COMMENTS ENTERED DATE: 03/02/21 16:04 CT COMMENT TYPE: Discharge Planning REVIEWER: Simran Deewy CM spoke with patient to discuss discharge plan. Patient stated she lives with her daughter (Jatin [phone]) and her son-in law. Jatin will provide transportation for patient after discharge and bring her home O2 supply. Patient stated she currently utilizes [facility] for home O2 services and plans to resume care. Patient states she has a walker and shower chair and requests home health services for assistance with ADLs. ALBA obtained and signed for [facility]. IMM also signed, placed in chart and copy provided to patient. Notified [facility] of new referral and spoke with Ewa. Ewa stated the SOC will be 03/05/21. CM will continue to follow. DCP REVIEW SUMMARY ANTICIPATED D/C DATE: 03/02/2021 EXPECTED LOS : 6 CASE STATUS: DCP Complete INITIAL REVIEW: 02/24/2021 INITIAL REVIEWER: Simran Dewey FINAL DISCHARGE DISPOSITION: : FINAL REVIEWER: FINAL REVIEW DATE: DCP Focus Questions & Answers DCP Screen QUESTION: ANSWER High Risk Factors: : Decreased adherence to treatment plan DCP Evaluation QUESTION: ANSWER Patient and/or caregiver agree upon recommended discharge plan? : Yes Family / Caregiver's ability to cope with chronic illness: : a. Adequate (ability to meet patient's medical needs, ensures patient attends medical appts.) Patient's current cognitive status: : *Oriented to person, place, situation, time and present Patient's ability to cope with chronic illness : a. Adequate (0-3 ED visits in 6 mos., adequate financial resources, attends scheduled appts.) Does the patient have the ability to pay for or attain post discharge needs / services? : Yes Functional screen assessment: : New onset in difficulty speaking Family / Caregiver's ability to cope with chronic illness: : a. Adequate (ability to meet patient's medical needs, ensures patient attends medical appts.) Physical Status: : Partial care dependence Is there a likelihood that the patient will require additional services to return to the preadmission environment? : Yes Functional screen comments: : Patient states she needs assistance with ADLs Living Arrangements: : Home with others Partial Dependence, assistance required for: : Bathing Results of this evaluation have been discussed with: : Patient Patient with capacity for self-care or can be cared for in same environment as prior to hospitalization? : No Living arrangements comments: : Lives with daughter and son in law Baseline cognitive status: : Alert Baseline cognitive status: : *Oriented to person, place, situation, time and present Physical environment modification needed / anticipated for discharge: : No Medication Management: : Patient states can afford medications Planned post hospital services available for patient? : Yes Pharmacy name(s): : [facility] Planned post hospital services covered by insurance plan? : Yes Does Patient have transportation to get home and to follow-up medical appointments when discharged from the hospital? : Yes Would patient like to participate in any Care Coordination programs (if applicable): : Not applicable Does the patient have electricity at home? : Yes Does the patient have running water in their house? : Yes Equipment in use: : Walker - Standard Equipment in use: : Shower Chair Equipment in use: : Home Oxygen with Nasal Cannula Equipment agency name and contact information: : [facility] Mental health screen: : No mental health history DCP Re-evaluation QUESTION: ANSWER Would patient like to participate in any Care Coordination programs (if applicable): : Not applicable PATIENT: ANÍBAL NAIR ENCOUNTER: [id number] MEDICAL RECORD#: [id number] ADMISSION DATE: 02/24/2021 DISCHARGE DATE: 03/02/2021 ATTENDING MD: KENIA HUTCHINSON : AGE: 65 MARITAL STATUS: X DC PLAN ID: [id number] FACILITY: [facility] PRINTED ON: 03/03/21 8:31 CT All edits/amendments must be made on the electronic document DICTATION DATE: 03/03/21830 LOOSE HAND PACKER: ILIANA 03/03/21830 RPT#: [id number] DC DATE:03/02/21 STATUS: DIS IN [facility] [address] [place] [address] END OF REPORT
== END 2021-03-02 15:00 | disposition home health service (06) | DRG 871 ==
LOC: D.ER 11:26 → D.ICU 13:27 → D.MS 13:27
PROVIDERS: Emergency Medicine; Internal Medicine Pulmonary Disease; Student in an Organized Health Care Education/Training Program; ADMIT Family Medicine; ATTEND Family Medicine
PROC: 0BH17EZ Insertion of Endotracheal Airway into Trachea, Via Natural or Artificial Opening (ICD-10-PCS; principal; 2021-02-24)
PROC: 5A1945Z Respiratory Ventilation, 24-96 Consecutive Hours (ICD-10-PCS; 2021-02-24)
PROC: 03H733Z Insertion of Infusion Device into Right Brachial Artery, Percutaneous Approach (ICD-10-PCS; 2021-02-24)
DX: A41.9 Sepsis, unspecified organism (principal); J96.02 Acute respiratory failure with hypercapnia; G93.41 Metabolic encephalopathy; R65.21 Severe sepsis with septic shock; J96.01 Acute respiratory failure with hypoxia; N17.9 Acute kidney failure, unspecified; E87.2 Acidosis; R74.01 Elevation of levels of liver transaminase levels

== ENCOUNTER 2021-03-05 01:23 | Inpatient (IN) | payer BC, MEDICARE ==
[~2021-03-05] VITALS: Ht 162.6 cm; Wt 76.2 kg
[~2021-03-05 01:23] MED LIST changes: +LEVOFLOXACIN500 MG PO; +SINGULAIR10 MG PO
[2021-03-05 02:37] LABS: BASOPHILS 1.1 % (0-2); EOSINOPHILS 3.4 % (0-7); HEMATOCRIT 35.5 % (36.0-48.0); HEMOGLOBIN 11.3 g/dL (12-16); LYMPHOCYTES 28.9 % (15-50); MCH 26.5 pg (26.0-34.0); MCHC 31.7 g/dL (31.0-37.0); MCV 83.6 fL (80.0-100.0); MEAN PLATELET VOLUME 7.3 fL (7.4-10.4); MONOCYTES 9.6 % (2-11); RBC 4.25 10x6/uL (4.00-5.40); RDW 19.5 % (11.5-14.5); WBC 10.9 10x3/uL (4.8-10.8)
[2021-03-05 02:39] LABS: PLATELET COUNT 500 10x3/uL (130-400)
[2021-03-05 02:49] LABS: CALC OSMOLALITY 287 mosm/kg (275-300); CALCIUM 9.1 mg/dL (8.5-10.1); CARBON DIOXIDE 37.5 mmol/L (21.0-32.0); CHLORIDE - SERUM 104 mmol/L (98-107); CREATININE - SERUM 0.8 mg/dL (0.6-1.3); GLUCOSE 110 mg/dL (74-106); POTASSIUM - SERUM 3.8 mmol/L (3.5-5.1); SODIUM 143 mmol/L (136-145); UREA NITROGEN 18 mg/dL (7-18); eGFR NON AFRICAN AMERICAN 76 mL/min (90-120)
[2021-03-05 03:09] LABS: ALBUMIN 2.6 g/dL (3.4-5.0); ALKALINE PHOSPHATASE 99 U/L (30-120); ALT (SGPT) 40 U/L (10-68); BILIRUBIN - TOTAL 0.17 mg/dL (0.2-1.3); CKMB 2.1 U/L (0.0-3.6); CREATINE KINASE 84 UL (21-215); PRO BNP 353 pg/mL (0-125); PROTEIN - SERUM 6.4 g/dL (6.4-8.2); TROPONIN-I < 0.017 ng/mL (0.000-0.060)
--- NOTE | 2021-03-05 05:47 | NUR ---
PT ASSISTED UP TO THE BEDSIDE COMMODE AT THIS TIME.
[2021-03-05 06:00] VITALS: BP 104/63
[2021-03-05 06:30] VITALS: BP 120/65
--- NOTE | 2021-03-05 07:18 | NUR ---
REPORT TO ONCOMING SHIFT.
[2021-03-05 07:30] VITALS: BP 120/63
--- NOTE | 2021-03-05 07:40 | NUR ---
MONITOR SHOWS DECREASED SPO2 IN 80S. PATIENT ASSESSED AND FOUND TO BE HYPOVENTILATING DURING SLEEP. AWAKENED, DEEP BREATHING AND COUGHING EXERCISES DONE WITH INCREASED IN SPO2 RESULTING.
--- NOTE | 2021-03-05 07:50 | NUR ---
OR CALLS FOR PRE-OP. CONSENTS FOR PROCEDURE, BLOOD TX AND ANESTHESIA SIGNED AND WITNESSED. PATIENT ASSISTED IN A HOSPITAL GOWN. TO OR HOLDING WITH STAFF BY STRETCHER. INFORMED OR STAFF OF DECREASED SP02 WITH SLEEP.
--- NOTE | 2021-03-05 08:03 | NUR ---
CALLED BOTH FAMILY CONTACT PHONE NUMBERS ON PATIENT FACE SHEET. DAUGHTER'S NUMBER VOICE MAIL RECORDING, SON'S PHONE WRONG NUMBER.
--- NOTE | 2021-03-05 11:45 | NUR ---
1145 REPORT TO WENDY, TO 2232 BY SARAI
[2021-03-05 12:45] VITALS: BP 140/94; BMI 28.9
--- NOTE | 2021-03-05 12:55 | NUR ---
ASSESSMENT COMPLETED PER FLOW SHEET. PATIENT FROM OUT PATIENTS VIA STRETCHER. POST OP ORIF WITH SLING IN PLACE TO RIGHT ARM.FALL PREVENTION WITH JOZEF,BAND,GOWN AND SOCKS.SIGN ON DOOR. CALL LIGHT USE INSTRUCTED AND IN REACH. SCD'S PLACED ON PATIENT. IS INSTRUCTED.
--- NOTE | 2021-03-05 14:19 | OP ---
PATIENT NAME: ANÍBAL KENNEDY MEDICAL RECORD: [id number] :51 LOCATION:[facility] ADMISSION DATE:03/05/21 SURGEON: DAISY MELGOZA DO DATE OF OPERATION: 03/05/2021 PROCEDURE PERFORMED: Right distal radius open reduction and internal fixation. PREOPERATIVE DIAGNOSIS: Right displaced distal radius fracture. POSTOPERATIVE DIAGNOSIS: Right displaced distal radius fracture. INDICATIONS: Ms. Kennedy is a 65-year-old female who fell off a potty chair sometime this baster hand, was brought to the ER, seen to have a severely displaced and comminuted distal radius fracture extraarticular. She was made n.p.o. and put on the surgical schedule for this morning. I informed her of the risks of this including infection, bleeding, damage to nerves or vessels, need for further surgery, continued pain, failure of implants, and malunion and nonunion. She is okay with that and she signed consent. SURGEON: Daisy Melgoza DO DESCRIPTION OF PROCEDURE: The patient was taken to the operative suite, laid in supine position after general block by anesthesia in preoperative area. She was lightly sedated with the block. She was given 2 grams of Ancef. The right upper extremity was prepped and draped in sterile fashion. A timeout was performed. Everyone was in agreement with the correct side, site, patient, and procedure. We then began by exsanguinating the right upper extremity with an Esmarch and tourniquet inflated to 250 mmHg, was up for 19 minutes. I then made an incision along the flexor carpi radialis tendon with careful dissection down to the tendon and removed the tendon sheath, went to the pronator quadratus, peeled it off the radius on the radial side. I then made a reduction, put a K-wire into the styloid. Once the reduction was adequate with the plate on, I put in the plate into place, put in a shaft screw in and then 3 distal locking screws of 18 and the radial styloid screw of 16. I then put in 2 more shaft screws, one of the 10 and was distal locking hole and the proximal locking hole was a 12. I then let the tourniquet down. Any bleeding was coagulated with a pickup and Bovie. She was then irrigated and closed by Dilan Braun, certified care assistant with 3-0 Vicryl in interrupted fashion and put Prineo glue on the skin. She did have some skin tears on the dorsal hand due to the reduction maneuver and these were covered with Telfa and Tegaderm. She was then dressed with Adaptic, 4 x 4s, cast padding, and a 3 x 12 splint placed volarly. She was then taken to recovery in stable condition. BLOOD LOSS: Minimal. COMPLICATIONS: None. TRANSINT:[id number] Voice Confirmation ID: [id number] DOCUMENT ID: [id number] OPERATIVE REPORT [id number] ANÍBAL KENNEDY,DAISY Manning DO at 1419 CC: [id number] DICTATION DATE: 03/05/21920 DATA WAREHOUSE DEVELOPER: 03/05/21 1045 ADM IN [address] [address]
[2021-03-05 20:00] VITALS: BP 149/87
[2021-03-06 00:19] VITALS: BP 168/77
[2021-03-06 03:32] VITALS: BP 103/62
--- NOTE | 2021-03-06 05:10 | NUR ---
I have reviewed this patient and I concur with the Shift Assessment completed by the Licensed Practical Nurse today this shift.
[2021-03-06 06:20] LABS: BASOPHILS 0.5 % (0-2); EOSINOPHILS 0.1 % (0-7); HEMATOCRIT 33.3 % (36.0-48.0); HEMOGLOBIN 10.4 g/dL (12-16); LYMPHOCYTES 10.3 % (15-50); MCH 26.1 pg (26.0-34.0); MCHC 31.1 g/dL (31.0-37.0); MEAN PLATELET VOLUME 7.2 fL (7.4-10.4); MONOCYTES 9.8 % (2-11); NEUTROPHILS 79.3 % (40-80); PLATELET COUNT 499 10x3/uL (130-400); RBC 3.96 10x6/uL (4.00-5.40); RDW 19.1 % (11.5-14.5); WBC 13.3 10x3/uL (4.8-10.8)
[2021-03-06 06:50] LABS: % SATURATION 13 % (15-55); IRON 35 ug/dl (35-150); TOTAL IRON BIND CAPACITY 257 ug/dl (260-445); UNSAT IRON BIND CAPACITY 222 ug/dl (150-375)
[2021-03-06 06:51] LABS: ALBUMIN 2.4 g/dL (3.4-5.0); ALKALINE PHOSPHATASE 81 U/L (30-120); ALT (SGPT) 30 U/L (10-68); BILIRUBIN - TOTAL 0.28 mg/dL (0.2-1.3); CALC OSMOLALITY 284 mosm/kg (275-300); CALCIUM 8.7 mg/dL (8.5-10.1); CARBON DIOXIDE 35.7 mmol/L (21.0-32.0); CHLORIDE - SERUM 104 mmol/L (98-107); CREATININE - SERUM 0.7 mg/dL (0.6-1.3); FERRITIN 72 ng/mL (3-244); GLUCOSE 99 mg/dL (74-106); MAGNESIUM - SERUM 2.2 mg/dL (1.8-2.4); POTASSIUM - SERUM 4.1 mmol/L (3.5-5.1); PRO BNP 231 pg/mL (0-125); PROTEIN - SERUM 6.1 g/dL (6.4-8.2); SODIUM 142 mmol/L (136-145); UREA NITROGEN 17 mg/dL (7-18); eGFR NON AFRICAN AMERICAN 88 mL/min (90-120)
--- NOTE | 2021-03-06 07:30 | NUR ---
AWAKE AND ALERT. ORIENTED X3. NO C/O AT THIS TIME. LUNGS ARE CLEAR BILATERALLY, NO COUGH NOTED. SKIN IS INTACT WITHOUT REDNESS EXCEPT INCISION TO RIGHT ARM WHICH HAS A DRY INTACT DRESSING IN PLACE. IV TO RIGHT FOREARM IS PATENT WITHOUT REDNESS AT INSERTION SITE.ON BIPAP AT THIS TIME. ASSISTED WITH BED TAYLOR PER STAFF. VOIDED 200CC CLEAR YELLOW URINE.
--- NOTE | 2021-03-06 09:30 | NUR ---
ATE ALL OF BREAKFAST. TOOK AM MEDS WITHOUT DIFFICULTY. REQUESTED AND GIVEN ONE HYDROCODONE 5MG PO FOR C/O RIGHT ARM PAIN LEVEL 6. WILL MONITOR.
[2021-03-06 10:13] VITALS: BP 127/74
--- NOTE | 2021-03-06 12:30 | NUR ---
SET HERSELF UP ON SIDE OF BED TO EAT LUNCH. DENIES NEEDS.
[2021-03-06 13:10] VITALS: BP 113/58
--- NOTE | 2021-03-06 14:27 | NUR ---
REQUESTED AND GIVEN ONE HYDROCODONE PO FOR C/O RIGHT ARM PAIN LEVEL 8. WILL MONITOR.
--- NOTE | 2021-03-06 14:39 | NUR ---
REHAB PRESCREEN RECEIVED. I HAVE EXPLAINED TO HEATHER ETIENNE RN CM THAT IT STANDS RIGHT NOW, THE REHAB IS FULL. WE DON'T CURRENTLY FORSEE HAVING ANOTHER OPEN BED UNTIL WEDNESDAY OF NEXT WEEK. THIS CAN ALWAYS CHANGE, SO WE WILL PROCEED WITH THE CHART SCREEN AT THIS TIME. SHE STATED SHE WOULD LET ME KNOW IF THE PATIENT WERE TO PLAN DISCHARGE SOMEWHERE ELSE. THANK YOU FOR THE REFERRAL. JUANITA SINGH RN CLINICAL LIAISON, INPATIENT REHAB.
[2021-03-06 16:57] VITALS: BP 105/54
--- NOTE | 2021-03-06 18:49 | NUR ---
ATE MOST OF SUPPER TRAY. NO CHANGES NOTED. DENIES NEEDS.
[2021-03-06 20:00] VITALS: BP 129/70
[2021-03-07 04:00] VITALS: BP 145/80
--- NOTE | 2021-03-07 06:18 | NUR ---
I have reviewed this patient and I concur with the Shift Assessment completed by the Licensed Practical Nurse today this shift.
[2021-03-07 06:54] LABS: BASOPHILS 0.7 % (0-2); EOSINOPHILS 0 % (0-7); HEMATOCRIT 34.4 % (36.0-48.0); HEMOGLOBIN 10.4 g/dL (12-16); MCH 25.4 pg (26.0-34.0); MCHC 30.1 g/dL (31.0-37.0); MCV 84.4 fL (80.0-100.0); MEAN PLATELET VOLUME 7.4 fL (7.4-10.4); MONOCYTES 3.7 % (2-11); NEUTROPHILS 90.6 % (40-80); PLATELET COUNT 521 10x3/uL (130-400); RBC 4.08 10x6/uL (4.00-5.40); WBC 15.4 10x3/uL (4.8-10.8)
[2021-03-07 07:13] LABS: ALBUMIN 2.5 g/dL (3.4-5.0); ALKALINE PHOSPHATASE 95 U/L (30-120); ALT (SGPT) 27 U/L (10-68); BILIRUBIN - TOTAL 0.19 mg/dL (0.2-1.3); CALC OSMOLALITY 288 mosm/kg (275-300); CALCIUM 8.5 mg/dL (8.5-10.1); CARBON DIOXIDE 32.5 mmol/L (21.0-32.0); CHLORIDE - SERUM 107 mmol/L (98-107); CREATININE - SERUM 0.7 mg/dL (0.6-1.3); GLUCOSE 129 mg/dL (74-106); MAGNESIUM - SERUM 2.4 mg/dL (1.8-2.4); POTASSIUM - SERUM 4.4 mmol/L (3.5-5.1); PROTEIN - SERUM 6.5 g/dL (6.4-8.2); SODIUM 142 mmol/L (136-145); eGFR NON AFRICAN AMERICAN 88 mL/min (90-120)
[2021-03-07 07:14] LABS: UREA NITROGEN 25 mg/dL (7-18)
--- NOTE | 2021-03-07 08:00 | NUR ---
PT ASSISTED TO BED SIDE COMMODE AT THIS TIME. BALANCE IS SOMEWHAT UNSTEADY, REQUIRES MINIMAL ASSIST IN TRANSFERING FROM BED. CASTING TO RIGHT UPPER EXTREMITY C/D/I. EXTREMITY WARM TO TOUCH. IV TO LEFT FOREARM WITH NS @ 50ML/HR INFUSING VIA PUMP. SITE WITHOUT REDNESS OR EDEMA. PT DENIES FURTHER NEEDS AT THIS TIME. CL WITHIN REACH. ENCOURAGED TO CALL WITH NEEDS. CONTINUE POC
[2021-03-07 09:16] VITALS: BP 153/82
[2021-03-07 09:51] VITALS: BP 136/113
[2021-03-07 12:51] VITALS: BP 114/58
--- NOTE | 2021-03-07 15:40 | NUR ---
PT IV TO LEFT AC LEAKING. IV DISCONTINUED AT THIS TIME. CATH INTACT. DR. GARCIA PRESENT AND VOICES TO DISCONTINUE IV, WILL START PT ON ORAL ANTIBIOTICS
[2021-03-07 17:03] VITALS: BP 121/73
--- NOTE | 2021-03-07 17:17 | NUR ---
OT NOTE: PT COMPLETED SUPINE TO SIT WITH SBA. PT COMPLETED ADL MOB WITH SBA-CGA. PT COMPLETED TOILETING WITH SBA. PT COMPLETED TOILET HYGIENE WITH SETUP. PT COMPLETED SITTING AT EOB WITH SPV. [phone] THANK YOU,REINIER PHILLIP
[2021-03-07 20:54] VITALS: BP 157/91
--- NOTE | 2021-03-08 04:05 | NUR ---
I have reviewed this patient and I concur with the Shift Assessment completed by the Licensed Practical Nurse today this shift.
[2021-03-08 06:29] LABS: BASOPHILS 0.7 % (0-2); EOSINOPHILS 0.1 % (0-7); HEMATOCRIT 36.5 % (36.0-48.0); HEMOGLOBIN 11.3 g/dL (12-16); MCH 26.1 pg (26.0-34.0); MCV 84.2 fL (80.0-100.0); MEAN PLATELET VOLUME 7.3 fL (7.4-10.4); MONOCYTES 5.8 % (2-11); NEUTROPHILS 77.4 % (40-80); PLATELET COUNT 592 10x3/uL (130-400); RBC 4.34 10x6/uL (4.00-5.40); RDW 19.4 % (11.5-14.5); WBC 16.6 10x3/uL (4.8-10.8)
[2021-03-08 07:15] LABS: ALKALINE PHOSPHATASE 95 U/L (30-120); ALT (SGPT) 24 U/L (10-68); BILIRUBIN - TOTAL 0.31 mg/dL (0.2-1.3); CALC OSMOLALITY 289 mosm/kg (275-300); CALCIUM 9.1 mg/dL (8.5-10.1); CARBON DIOXIDE 29.1 mmol/L (21.0-32.0); CHLORIDE - SERUM 104 mmol/L (98-107); CREATININE - SERUM 0.8 mg/dL (0.6-1.3); GLUCOSE 98 mg/dL (74-106); MAGNESIUM - SERUM 2.6 mg/dL (1.8-2.4); POTASSIUM - SERUM 3.8 mmol/L (3.5-5.1); PROTEIN - SERUM 7.1 g/dL (6.4-8.2); SODIUM 143 mmol/L (136-145); UREA NITROGEN 27 mg/dL (7-18); eGFR NON AFRICAN AMERICAN 76 mL/min (90-120)
[2021-03-08 07:16] LABS: ALBUMIN 3.5 g/dL (3.4-5.0); PHOSPHOROUS 3.8 mg/dL (2.5-4.9)
--- NOTE | 2021-03-08 07:45 | NUR ---
PT STATES PAIN "IS FINE." CL IN REACH. NO NEEDS AT THIS TIME. ASSISTED TO TAKE BIPAP OFF AND PUT O2 ON. WCTM
[2021-03-08 09:14] VITALS: BP 147/79
--- NOTE | 2021-03-08 10:44 | NUR ---
PT SITTING ON SIDE OF BED. CL IN REACH. NO NEEDS AT THIS TIME. WCTM
[2021-03-08 13:37] VITALS: BP 169/88
--- NOTE | 2021-03-08 14:22 | NUR ---
PT RESTING. CL IN REACH. WCTM
[2021-03-08 17:21] VITALS: BP 117/66
[2021-03-08 17:43] VITALS: BP 117/66
[2021-03-08 20:00] VITALS: BP 132/79
[2021-03-09 03:06] LABS: IMMUNOGLOBULIN E 17 IU/mL (6-495)
[2021-03-09 06:33] VITALS: BP 130/73; BP 165/109
[2021-03-09 06:58] LABS: BASOPHILS 0.2 % (0-2); EOSINOPHILS 0.3 % (0-7); HEMATOCRIT 36.2 % (36.0-48.0); HEMOGLOBIN 11.1 g/dL (12-16); IMMATURE GRANULOCYTES 0.2 % (0-5); LYMPHOCYTE ABS# 3.05 10x3/uL (1.18-3.74); LYMPHOCYTES 23.1 % (15-50); MCH 26.2 pg (26.0-34.0); MCHC 30.7 g/dL (31.0-37.0); MCV 85.6 fL (80.0-100.0); MEAN PLATELET VOLUME 9.1 fL (7.4-10.4); MONOCYTES 6.8 % (2-11); NEUTROPHIL ABS# 9.18 10x3/uL (1.56-6.13); NEUTROPHILS 69.4 % (40-80); PLATELET COUNT 593 10x3/uL (130-400); RBC 4.23 10x6/uL (4.00-5.40); RDW 18.9 % (11.5-14.5); WBC 13.2 10x3/uL (4.8-10.8)
[2021-03-09 08:28] LABS: ALBUMIN 2.7 g/dL (3.4-5.0); ANION GAP 10.1 mmol/L (8-16); BILIRUBIN - TOTAL 0.3 mg/dL (0.2-1.3); CARBON DIOXIDE 32.1 mmol/L (21.0-32.0); CREATININE - SERUM 0.9 mg/dL (0.6-1.3); MAGNESIUM - SERUM 2.4 mg/dL (1.8-2.4); PHOSPHOROUS 4.1 mg/dL (2.5-4.9); POTASSIUM - SERUM 4.2 mmol/L (3.5-5.1); PROTEIN - SERUM 6.8 g/dL (6.4-8.2)
[2021-03-09 08:37] VITALS: BP 142/73
[2021-03-09 11:43] VITALS: BP 116/66
--- NOTE | 2021-03-09 17:22 | MORECARE ---
CASE MANAGEMENT DISCHARGE SUMMARY PATIENT: ANÍBAL NAIR UNIT: [id number] ADM DATE: 03/06/21 AGE: 65 : 53 SEX: F ROOM/BED: D.2232 AUTHOR: CHAYA,CINDY PHYSICIAN: REFERRING PHYSICIAN: BERTRAM TELLEZ MD DATE OF SERVICE: 03/09/21 Case Management Discharge Planning Summary COMMENTS ENTERED DATE: 03/09/21 17:18 CT COMMENT TYPE: Discharge Planning REVIEWER: Abdiaziz Garcia CM met with patient to complete DC plan and to evaluate needs. Patient stated that she readmitted because she fell attempting to sit on the bedside commode. Patient stated that she was unable to obtain her medications after last discharge and was not able to keep her follow up appointment due to the quick two re-admittance. Patient stated that she followed the dc instructions given to her. It appears that this readmission was due to a new condition. Patient lives independently with family and stated that her person to notify is her daughter, Madison Powell, . Patient stated that her home is safe and has electricity and running water. Patient stated that she has some issues with money at this time and may have problems paying for her medications. Patient stated that she fills her medications at [facility] on [address]. Patient stated that her primary care physician is Dr. Figueroa. At discharge, the patient plans to return home and feels this is a safe discharge. CM discussed availability of home health, rehab services, and medical equipment. Patient declined SNF and IPR but would like Home Health Services through [place] and would like a nebulizer and Bedside Commode through [facility]. Patient stated that she has a walker and a "potty chair" but the chair is in disrepair and contributed to her fall. Patient stated that she has oxygen through [facility]. Patient voiced no other needs at this time and is satisfied with DC plan. Transportation provider at discharge will be with Madison. DC IMM delivered, explained, signed by the patient, and placed in chart. Signed form also left with the patient. CM will continue to follow and will assist as needed with dc plans/needs. ENTERED DATE: 03/09/21 13:02 CT COMMENT TYPE: Discharge Planning REVIEWER: Abdiaziz Garcia Spoke with Vanna antoine [facility] regarding Trilogy Machine. Vanna stated that over the weekend she cannot get insurance authorization and she is unsure of the requirements for BC. Vanna requested progress notes, DME order, and demographics page. Will fax. CM will continue to follow and will assist as needed with dc plans/needs. DCP REVIEW SUMMARY ANTICIPATED D/C DATE: EXPECTED LOS : CASE STATUS: DCP Initiated INITIAL REVIEW: 03/05/2021 INITIAL REVIEWER: Abdiaziz Garcia FINAL DISCHARGE DISPOSITION: : FINAL REVIEWER: FINAL REVIEW DATE: DCP Focus Questions & Answers DCP Evaluation QUESTION: ANSWER Family / Caregiver's ability to cope with chronic illness: : a. Adequate (ability to meet patient's medical needs, ensures patient attends medical appts.) Patient gives permission to discuss discharge plans with: (name, relationship and number) : daughterMadison, Patient's ability to cope with chronic illness : d. No chronic illness Patient's current cognitive status: : *Oriented to person, place, situation, time and present Patient and/or caregiver agree upon recommended discharge plan? : Yes Physical Status: : Independent with ADL's Family / Caregiver's ability to cope with chronic illness: : a. Adequate (ability to meet patient's medical needs, ensures patient attends medical appts.) Functional screen assessment: : Basic needs can adequately be met by self Does the patient have the ability to pay for or attain post discharge needs / services? : Yes Living Arrangements: : Home with Extended Family Is there a likelihood that the patient will require additional services to return to the preadmission environment? : No Equipment needed for post hospitalization: : Bedside Commode Equipment needed for post hospitalization: : Nebulizer Baseline cognitive status: : *Oriented to person, place, situation, time and present Patient with capacity for self-care or can be cared for in same environment as prior to hospitalization? : Yes Other Equipment comments: : TRILOGY Physical environment modification needed / anticipated for discharge: : No Medication Management: : Patient states can afford medications Medication Management: : Patient states can read and understand medication labels Pharmacy name(s): : [facility] [address] Does Patient have transportation to get home and to follow-up medical appointments when discharged from the hospital? : Yes Would patient like to participate in any Care Coordination programs (if applicable): : Not applicable Does the patient have electricity at home? : Yes Does the patient have running water in their house? : Yes Equipment in use: : Bedside Commode Equipment in use: : Walker - Rolling Equipment agency name and contact information: : [facility] Mental health screen: : No mental health history DCP Re-evaluation QUESTION: ANSWER Would patient like to participate in any Care Coordination programs (if applicable): : Not applicable PATIENT: ANÍBAL NAIR ENCOUNTER: [id number] MEDICAL RECORD#: [id number] ADMISSION DATE: 03/06/2021 DISCHARGE DATE: ATTENDING MD: BERTRAM SCHWAB : AGE: 65 MARITAL STATUS: X DC PLAN ID: [id number] FACILITY: [facility] PRINTED ON: 03/09/21 17:22 CT All edits/amendments must be made on the electronic document DICTATION DATE: 03/09/211721 EMOTIONAL SUPPORT TEACHER: ILIANA 03/09/211721 RPT#: [id number] DC DATE: STATUS: ADM IN [facility] [address] [place] [address] END OF REPORT
[2021-03-09 18:10] VITALS: BP 149/73
[2021-03-09 20:00] VITALS: BP 134/69
[2021-03-10] VITALS: BP 134/75
[2021-03-10 04:00] VITALS: BP 137/65
[2021-03-10 06:21] LABS: BASOPHILS 0.6 % (0-2); EOSINOPHILS 0.2 % (0-7); HEMATOCRIT 37.5 % (36.0-48.0); HEMOGLOBIN 11.6 g/dL (12-16); LYMPHOCYTES 16.7 % (15-50); MCH 26.4 pg (26.0-34.0); MCHC 31.1 g/dL (31.0-37.0); MCV 84.7 fL (80.0-100.0); MEAN PLATELET VOLUME 7.6 fL (7.4-10.4); MONOCYTES 5.9 % (2-11); NEUTROPHILS 76.6 % (40-80); PLATELET COUNT 604 10x3/uL (130-400); RBC 4.42 10x6/uL (4.00-5.40); RDW 19.8 % (11.5-14.5); WBC 14.8 10x3/uL (4.8-10.8)
[2021-03-10 06:22] LABS: ALBUMIN 2.9 g/dL (3.4-5.0); ANION GAP 9.1 mmol/L (8-16); BILIRUBIN - TOTAL 0.31 mg/dL (0.2-1.3); CALCIUM 8.9 mg/dL (8.5-10.1); CARBON DIOXIDE 33.1 mmol/L (21.0-32.0); MAGNESIUM - SERUM 2.3 mg/dL (1.8-2.4); PHOSPHOROUS 4.8 mg/dL (2.5-4.9); POTASSIUM - SERUM 4.2 mmol/L (3.5-5.1); PROTEIN - SERUM 7.1 g/dL (6.4-8.2)
--- NOTE | 2021-03-10 07:51 | NUR ---
AWAKE AND ALERT. ORIENTED X3. NO C/O AT THIS TIME. LUNGS ARE CLEAR BILATERALLY, NO COUGH NOTED. SKIN IS INTACT WITHOUT REDNESS EXCEPT INCISION TO RIGHT ARM, WHICH HAS A DRY INTACT DRESSING IN PLACE. MOVES DIGITS FREELY TO SAME. NO IV AT THIS TIME. DENIES NEEDS.
[2021-03-10 09:09] VITALS: BP 141/79
--- NOTE | 2021-03-10 09:30 | NUR ---
ATE ALL OF BREAKFAST. TOOK AM MEDS WITHOUT DIFFICULTY. DENIES NEEDS.
[2021-03-10 13:30] VITALS: BP 108/70
--- NOTE | 2021-03-10 14:21 | NUR ---
OT NOTE: PT DOING WELL. ABLE TO PERFORM BED MOB WITH SBA; AMB TO BATHROOM WITH SPV; ABLE TO PERFORM SIMPLE GROOMING TASKS WITH SET UP; AROM IN FINGERS IS GOOD.. EDEMA IN R HAND HAS IMPROVED. HEATHER MAGALLON, OTR/L [id number]
[2021-03-10 14:27] VITALS: Ht 162.6 cm; Wt 76.2 kg
--- NOTE | 2021-03-10 15:49 | MORECARE ---
CASE MANAGEMENT DISCHARGE SUMMARY PATIENT: ANÍBAL NAIR UNIT: [id number] ADM DATE: 03/06/21 AGE: 65 : 53 SEX: F ROOM/BED: D.2232 AUTHOR: CHAYA,DOC PHYSICIAN: REFERRING PHYSICIAN: BERTRAM TELLEZ MD DATE OF SERVICE: 03/10/21 Case Management Discharge Planning Summary COMMENTS ENTERED DATE: 03/10/21 15:42 CT COMMENT TYPE: Discharge Planning REVIEWER: Shayy Grace Received call from [facility] for patient's trilogy, her insurance has termed. [facility] is checking to see what they can do and they will get back with us. CM to follow and assist as needed. ENTERED DATE: 03/09/21 17:18 CT COMMENT TYPE: Discharge Planning REVIEWER: Abdiaziz Garcia CM met with patient to complete DC plan and to evaluate needs. Patient stated that she readmitted because she fell attempting to sit on the bedside commode. Patient stated that she was unable to obtain her medications after last discharge and was not able to keep her follow up appointment due to the quick two re-admittance. Patient stated that she followed the dc instructions given to her. It appears that this readmission was due to a new condition. Patient lives independently with family and stated that her person to notify is her daughter, Madison Powell, . Patient stated that her home is safe and has electricity and running water. Patient stated that she has some issues with money at this time and may have problems paying for her medications. Patient stated that she fills her medications at [facility] on [address]. Patient stated that her primary care physician is Dr. Figueroa. At discharge, the patient plans to return home and feels this is a safe discharge. CM discussed availability of home health, rehab services, and medical equipment. Patient declined SNF and IPR but would like Home Health Services through [place] and would like a nebulizer and Bedside Commode through [facility]. Patient stated that she has a walker and a "potty chair" but the chair is in disrepair and contributed to her fall. Patient stated that she has oxygen through [facility]. Patient voiced no other needs at this time and is satisfied with DC plan. Transportation provider at discharge will be with Madison. DC IMM delivered, explained, signed by the patient, and placed in chart. Signed form also left with the patient. CM will continue to follow and will assist as needed with dc plans/needs. ENTERED DATE: 03/09/21 13:02 CT COMMENT TYPE: Discharge Planning REVIEWER: Abdiaziz Garcia Spoke with Vanna of [facility] regarding Trilogy [employer]. Vanna stated that over the weekend she cannot get insurance authorization and she is unsure of the requirements for . Vanna requested progress notes, DME order, and demographics page. Will fax. CM will continue to follow and will assist as needed with dc plans/needs. DCP REVIEW SUMMARY ANTICIPATED D/C DATE: EXPECTED LOS : CASE STATUS: DCP Initiated INITIAL REVIEW: 03/05/2021 INITIAL REVIEWER: Abdiaziz Garcia FINAL DISCHARGE DISPOSITION: : FINAL REVIEWER: FINAL REVIEW DATE: DCP Focus Questions & Answers DCP Evaluation QUESTION: ANSWER Patient and/or caregiver agree upon recommended discharge plan? : Yes Family / Caregiver's ability to cope with chronic illness: : a. Adequate (ability to meet patient's medical needs, ensures patient attends medical appts.) Patient's current cognitive status: : *Oriented to person, place, situation, time and present Patient's ability to cope with chronic illness : d. No chronic illness Patient gives permission to discuss discharge plans with: (name, relationship and number) : daughterMadison, Does the patient have the ability to pay for or attain post discharge needs / services? : Yes Functional screen assessment: : Basic needs can adequately be met by self Family / Caregiver's ability to cope with chronic illness: : a. Adequate (ability to meet patient's medical needs, ensures patient attends medical appts.) Physical Status: : Independent with ADL's Equipment needed for post hospitalization: : Nebulizer Equipment needed for post hospitalization: : Bedside Commode Is there a likelihood that the patient will require additional services to return to the preadmission environment? : No Living Arrangements: : Home with Extended Family Other Equipment comments: : TRILOGY Patient with capacity for self-care or can be cared for in same environment as prior to hospitalization? : Yes Baseline cognitive status: : *Oriented to person, place, situation, time and present Physical environment modification needed / anticipated for discharge: : No Medication Management: : Patient states can read and understand medication labels Medication Management: : Patient states can afford medications Pharmacy name(s): : [facility] [address] Does Patient have transportation to get home and to follow-up medical appointments when discharged from the hospital? : Yes Would patient like to participate in any Care Coordination programs (if applicable): : Not applicable Does the patient have electricity at home? : Yes Does the patient have running water in their house? : Yes Equipment in use: : Walker - Rolling Equipment in use: : Bedside Commode Equipment agency name and contact information: : [facility] Mental health screen: : No mental health history DCP Re-evaluation QUESTION: ANSWER Would patient like to participate in any Care Coordination programs (if applicable): : Not applicable PATIENT: ANÍBAL NAIR ENCOUNTER: [id number] MEDICAL RECORD#: [id number] ADMISSION DATE: 03/06/2021 DISCHARGE DATE: ATTENDING MD: BERTRAM SCHWAB : AGE: 65 MARITAL STATUS: X DC PLAN ID: [id number] FACILITY: [facility] PRINTED ON: 03/10/21 15:49 CT All edits/amendments must be made on the electronic document DICTATION DATE: 03/10/21 1548 SENIOR PROPERTY ACCOUNTANT: ILIANA 03/10/21 1548 RPT#: [id number] DC DATE: STATUS: ADM IN [facility] [address] [place] [address] END OF REPORT
[2021-03-10 17:46] VITALS: BP 124/69
--- NOTE | 2021-03-10 19:44 | NUR ---
ATE MOST OF SUPPER PER SELF. NO CHANGES NOTED. DENIES NEEDS.
[2021-03-10 20:00] VITALS: BP 141/62
--- NOTE | 2021-03-10 20:21 | NUR ---
PATIENT RESTING IN BED WITH NO S/S OF DISTRESS OF DISTRESS AND DENIES NEEDS AT THIS TIME. BED IN LOWEST POSITION AND CALL LIGHT IN REACH. ENCOURAGED PATIENT TO CALL WITH NEEDS.
--- NOTE | 2021-03-10 21:23 | NUR ---
ADMINISTERED MEDS PER ORDERS. PATIENT GAL WELL. ENCOURAGED TO CALL WITH NEEDS.
[2021-03-11] VITALS: BP 109/62
[2021-03-11 04:00] VITALS: BP 118/70
--- NOTE | 2021-03-11 07:30 | NUR ---
AWAKE AND ALERT. ORIENTED X3. NO C/O AT THIS TIME. LUNGS ARE CLEAR BILATERALLY, NO COUGH NOTED. SKIN IS INTACT WTIHOUT REDNESS EXCEPT INCISION TO LEFT ARM WHICH HAS A DRY INTACT DRESSING IN PLACE. NO IV ACCESS AT THIS TIME. DENIES NEEDS.
[2021-03-11 09:07] VITALS: BP 144/84
--- NOTE | 2021-03-11 09:30 | NUR ---
ATE ABOUT HALF OF BREAKFAST. TOOK AM MEDS WITHOUT DIFFICULTY. DENIES NEEDS.
--- NOTE | 2021-03-11 11:24 | NUR ---
PATIENT WALKED 250 FEET WITH CGA USING WALKER.
[2021-03-11 12:42] VITALS: BP 108/62
--- NOTE | 2021-03-11 15:59 | MORECARE ---
CASE MANAGEMENT DISCHARGE SUMMARY PATIENT: ANÍBAL NAIR UNIT: [id number] ADM DATE: 03/06/21 AGE: 65 : 53 SEX: F ROOM/BED: D.2232 AUTHOR: CHAYA,DOC PHYSICIAN: REFERRING PHYSICIAN: BERTRAM TELLEZ MD DATE OF SERVICE: 03/11/21 Case Management Discharge Planning Summary COMMENTS ENTERED DATE: 03/10/21 15:42 CT COMMENT TYPE: Discharge Planning REVIEWER: Shayy Grace Received call from [facility] for patient's trilogy, her insurance has termed. [facility] is checking to see what they can do and they will get back with us. CM to follow and assist as needed. ENTERED DATE: 03/09/21 17:18 CT COMMENT TYPE: Discharge Planning REVIEWER: Abdiaziz Garcia CM met with patient to complete DC plan and to evaluate needs. Patient stated that she readmitted because she fell attempting to sit on the bedside commode. Patient stated that she was unable to obtain her medications after last discharge and was not able to keep her follow up appointment due to the quick two re-admittance. Patient stated that she followed the dc instructions given to her. It appears that this readmission was due to a new condition. Patient lives independently with family and stated that her person to notify is her daughter, Madison Powell, . Patient stated that her home is safe and has electricity and running water. Patient stated that she has some issues with money at this time and may have problems paying for her medications. Patient stated that she fills her medications at [facility] on [address]. Patient stated that her primary care physician is Dr. Figueroa. At discharge, the patient plans to return home and feels this is a safe discharge. CM discussed availability of home health, rehab services, and medical equipment. Patient declined SNF and IPR but would like Home Health Services through [place] and would like a nebulizer and Bedside Commode through [facility]. Patient stated that she has a walker and a "potty chair" but the chair is in disrepair and contributed to her fall. Patient stated that she has oxygen through [facility]. Patient voiced no other needs at this time and is satisfied with DC plan. Transportation provider at discharge will be with Madison. DC IMM delivered, explained, signed by the patient, and placed in chart. Signed form also left with the patient. CM will continue to follow and will assist as needed with dc plans/needs. ENTERED DATE: 03/09/21 13:02 CT COMMENT TYPE: Discharge Planning REVIEWER: Abdiaziz Garcia Spoke with Vanna of [facility] regarding Trilogy Machine. Vanna stated that over the weekend she cannot get insurance authorization and she is unsure of the requirements for . Vanna requested progress notes, DME order, and demographics page. Will fax. CM will continue to follow and will assist as needed with dc plans/needs. DCP REVIEW SUMMARY ANTICIPATED D/C DATE: EXPECTED LOS : CASE STATUS: DCP Initiated INITIAL REVIEW: 03/05/2021 INITIAL REVIEWER: Abdiaziz Garcia FINAL DISCHARGE DISPOSITION: : FINAL REVIEWER: FINAL REVIEW DATE: DCP Focus Questions & Answers DCP Evaluation QUESTION: ANSWER Patient gives permission to discuss discharge plans with: (name, relationship and number) : daughterMadison, Patient's ability to cope with chronic illness : d. No chronic illness Patient's current cognitive status: : *Oriented to person, place, situation, time and present Family / Caregiver's ability to cope with chronic illness: : a. Adequate (ability to meet patient's medical needs, ensures patient attends medical appts.) Patient and/or caregiver agree upon recommended discharge plan? : Yes Physical Status: : Independent with ADL's Family / Caregiver's ability to cope with chronic illness: : a. Adequate (ability to meet patient's medical needs, ensures patient attends medical appts.) Functional screen assessment: : Basic needs can adequately be met by self Does the patient have the ability to pay for or attain post discharge needs / services? : Yes Living Arrangements: : Home with Extended Family Is there a likelihood that the patient will require additional services to return to the preadmission environment? : No Equipment needed for post hospitalization: : Bedside Commode Equipment needed for post hospitalization: : Nebulizer Baseline cognitive status: : *Oriented to person, place, situation, time and present Patient with capacity for self-care or can be cared for in same environment as prior to hospitalization? : Yes Other Equipment comments: : TRILOGY Physical environment modification needed / anticipated for discharge: : No Medication Management: : Patient states can afford medications Medication Management: : Patient states can read and understand medication labels Pharmacy name(s): : [facility] [address] Does Patient have transportation to get home and to follow-up medical appointments when discharged from the hospital? : Yes Would patient like to participate in any Care Coordination programs (if applicable): : Not applicable Does the patient have electricity at home? : Yes Does the patient have running water in their house? : Yes Equipment in use: : Bedside Commode Equipment in use: : Walker - Rolling Equipment agency name and contact information: : [facility] Mental health screen: : No mental health history DCP Re-evaluation QUESTION: ANSWER Would patient like to participate in any Care Coordination programs (if applicable): : Not applicable PATIENT: ANÍBAL NAIR ENCOUNTER: [id number] MEDICAL RECORD#: [id number] ADMISSION DATE: 03/06/2021 DISCHARGE DATE: ATTENDING MD: BERTRAM SCHWAB : AGE: 65 MARITAL STATUS: X DC PLAN ID: [id number] FACILITY: [facility] PRINTED ON: 03/11/21 15:59 CT All edits/amendments must be made on the electronic document DICTATION DATE: 03/11/211558 SEED PELLETER: ILIANA 03/11/21 155 RPT#: [id number] DC DATE: STATUS: ADM IN [facility] [address] [place] [address] END OF REPORT
[2021-03-11 17:08] VITALS: BP 113/66
--- NOTE | 2021-03-11 18:30 | NUR ---
ATE ALL OF SUPPER. DENIES NEEDS. NO CHANGES NOTED.
[2021-03-11 20:00] VITALS: BP 96/58
--- NOTE | 2021-03-11 20:00 | NUR ---
ALERT SITTING UP ON SIDE OF BED, DENIES PAIN OR NEEDS AT THIS TIME, SEE SHIFT ASSESSMENT, CALL LIGHT IN REACH
--- NOTE | 2021-03-11 21:43 | NUR ---
OT NOTE: PT COMPLETED SUPINE TO SIT WITH SPV. PT COMPLETED ADL MOB WITH SBA-CGA. PT COMPLETED SIT TO STAND WITH SBA. PT COMPLETED GROOMING WITH SPV. [id number] THANK YOU,REINIER PHILLIP
[2021-03-12] VITALS: BP 127/76
[2021-03-12 04:00] VITALS: BP 148/84
[2021-03-12 06:21] LABS: BASOPHILS 0.9 % (0-2); EOSINOPHILS 1.2 % (0-7); HEMATOCRIT 36.1 % (36.0-48.0); HEMOGLOBIN 11.2 g/dL (12-16); LYMPHOCYTES 25.6 % (15-50); MCH 26.3 pg (26.0-34.0); MEAN PLATELET VOLUME 7.3 fL (7.4-10.4); MONOCYTES 7.7 % (2-11); NEUTROPHILS 64.6 % (40-80); PLATELET COUNT 586 10x3/uL (130-400); RBC 4.24 10x6/uL (4.00-5.40); RDW 19.7 % (11.5-14.5); WBC 12.9 10x3/uL (4.8-10.8)
[2021-03-12 07:01] LABS: ALBUMIN 2.5 g/dL (3.4-5.0); ANION GAP 8.9 mmol/L (8-16); BILIRUBIN - TOTAL 0.27 mg/dL (0.2-1.3); CALCIUM 8.5 mg/dL (8.5-10.1); CARBON DIOXIDE 34.3 mmol/L (21.0-32.0); CREATININE - SERUM 0.9 mg/dL (0.6-1.3); POTASSIUM - SERUM 4.2 mmol/L (3.5-5.1); PROTEIN - SERUM 6.1 g/dL (6.4-8.2)
--- NOTE | 2021-03-12 07:55 | NUR ---
PT RESTING IN BED WITH EYES CLOSED. AWAKENS STAFF ENTERS ROOM. RESP EVEN AND UNLABORED. O2 @ 4L NC IN PLACE. PT REPORTS PAIN 3/10 AT THIS TIME. CAST DRESSING INTACT TO RIGHT FOREARM, C/D/I. PT DENIES FURTHER NEEDS AT THIS TIME. CL WITHIN REACH. ENCOURAGED TO CALL WITH NEEDS. CONTINUE POC
[2021-03-12 08:06] VITALS: BP 142/79
[2021-03-12 12:36] VITALS: BP 102/55
--- NOTE | 2021-03-12 14:37 | NUR ---
PATIENT WALKED 250 FEET WITH CGA WITHOUT ASST DEVICE.
--- NOTE | 2021-03-12 16:08 | MORECARE ---
CASE MANAGEMENT DISCHARGE SUMMARY PATIENT: ANÍBAL NAIR UNIT: [id number] ADM DATE: 03/06/21 AGE: 65 : 53 SEX: F ROOM/BED: D.2232 AUTHOR: CHAYA,DOC PHYSICIAN: REFERRING PHYSICIAN: BERTRAM TELLEZ MD DATE OF SERVICE: 03/12/21 Case Management Discharge Planning Summary COMMENTS ENTERED DATE: 03/12/21 15:59 CT COMMENT TYPE: Discharge Planning REVIEWER: Olya Caal CM asked Graciela with [employer] to see patient. CM received a call back from Shayy Killian and Graciela. Patient does have Medicare A only. She has BCBS with [employer] her employer it is a month to month policy. Patient hasn't worked enough in February to get insurance. She is over income for RHONDA and the only RHONDA she might qualify for is a spin down and that will only be good for 3 months. Patient has no benefits that will cover DME at this time. ENTERED DATE: 03/10/21 15:42 CT COMMENT TYPE: Discharge Planning REVIEWER: Shayy Grace Received call from [facility] for patient's trilogy, her insurance has termed. [facility] is checking to see what they can do and they will get back with us. CM to follow and assist as needed. ENTERED DATE: 03/09/21 17:18 CT COMMENT TYPE: Discharge Planning REVIEWER: Abdiaziz Garcia CM met with patient to complete DC plan and to evaluate needs. Patient stated that she readmitted because she fell attempting to sit on the bedside commode. Patient stated that she was unable to obtain her medications after last discharge and was not able to keep her follow up appointment due to the quick two re-admittance. Patient stated that she followed the dc instructions given to her. It appears that this readmission was due to a new condition. Patient lives independently with family and stated that her person to notify is her daughter, Madison Powell, . Patient stated that her home is safe and has electricity and running water. Patient stated that she has some issues with money at this time and may have problems paying for her medications. Patient stated that she fills her medications at [facility] [address]. Patient stated that her primary care physician is Dr. Figueroa. At discharge, the patient plans to return home and feels this is a safe discharge. CM discussed availability of home health, rehab services, and medical equipment. Patient declined SNF and IPR but would like Home Health Services through [place] and would like a nebulizer and Bedside Commode through [facility]. Patient stated that she has a walker and a "potty chair" but the chair is in disrepair and contributed to her fall. Patient stated that she has oxygen through [facility]. Patient voiced no other needs at this time and is satisfied with DC plan. Transportation provider at discharge will be with Madison. DC IMM delivered, explained, signed by the patient, and placed in chart. Signed form also left with the patient. CM will continue to follow and will assist as needed with dc plans/needs. ENTERED DATE: 03/09/21 13:02 CT COMMENT TYPE: Discharge Planning REVIEWER: Abdiaziz Garcia Spoke with Vanna of [facility] regarding Tr[employer]. Vanna stated that over the weekend she cannot get insurance authorization and she is unsure of the requirements for . Vanna requested progress notes, DME order, and demographics page. Will fax. CM will continue to follow and will assist as needed with dc plans/needs. DCP REVIEW SUMMARY ANTICIPATED D/C DATE: EXPECTED LOS : CASE STATUS: DCP Initiated INITIAL REVIEW: 03/05/2021 INITIAL REVIEWER: Abdiaziz Garcia FINAL DISCHARGE DISPOSITION: : FINAL REVIEWER: FINAL REVIEW DATE: DCP Focus Questions & Answers DCP Evaluation QUESTION: ANSWER Patient and/or caregiver agree upon recommended discharge plan? : Yes Family / Caregiver's ability to cope with chronic illness: : a. Adequate (ability to meet patient's medical needs, ensures patient attends medical appts.) Patient's current cognitive status: : *Oriented to person, place, situation, time and present Patient's ability to cope with chronic illness : d. No chronic illness Patient gives permission to discuss discharge plans with: (name, relationship and number) : Madison terrazas, Does the patient have the ability to pay for or attain post discharge needs / services? : Yes Functional screen assessment: : Basic needs can adequately be met by self Family / Caregiver's ability to cope with chronic illness: : a. Adequate (ability to meet patient's medical needs, ensures patient attends medical appts.) Physical Status: : Independent with ADL's Equipment needed for post hospitalization: : Nebulizer Equipment needed for post hospitalization: : Bedside Commode Is there a likelihood that the patient will require additional services to return to the preadmission environment? : No Living Arrangements: : Home with Extended Family Other Equipment comments: : TRILOGY Patient with capacity for self-care or can be cared for in same environment as prior to hospitalization? : Yes Baseline cognitive status: : *Oriented to person, place, situation, time and present Physical environment modification needed / anticipated for discharge: : No Medication Management: : Patient states can read and understand medication labels Medication Management: : Patient states can afford medications Pharmacy name(s): : [facility] [address] Does Patient have transportation to get home and to follow-up medical appointments when discharged from the hospital? : Yes Would patient like to participate in any Care Coordination programs (if applicable): : Not applicable Does the patient have electricity at home? : Yes Does the patient have running water in their house? : Yes Equipment in use: : Walker - Rolling Equipment in use: : Bedside Commode Equipment agency name and contact information: : [facility] screen: : No mental health history DCP Re-evaluation QUESTION: ANSWER Would patient like to participate in any Care Coordination programs (if applicable): : Not applicable PATIENT: ANÍBAL NAIR ENCOUNTER: [id number] MEDICAL RECORD#: [id number] ADMISSION DATE: 03/06/2021 DISCHARGE DATE: ATTENDING MD: BERTRAM SCHWAB : AGE: 65 MARITAL STATUS: X DC PLAN ID: [id number] FACILITY: [facility] PRINTED ON: 6/16/21 16:07 CT All edits/amendments must be made on the electronic document DICTATION DATE: 03/12/211606 LAW TUTOR: ILIANA 03/12/211606 RPT#: [id number] DC DATE: STATUS: ADM IN [facility] [address] [place] [address] END OF REPORT
--- NOTE | 2021-03-12 16:15 | NUR ---
OT NOTE: PT COMPLETED ADL MOBILITY WITH SBA-CGA. PT COMPLETED TOILETING TASKS WITH SETUP. PT COMPLETED TOILET HYGIENE WITH SETUP. [phone] THANK YOU,REINIER PHILLIP
[2021-03-12 16:18] VITALS: BP 92/59
[2021-03-12 20:00] VITALS: BP 117/67
--- NOTE | 2021-03-12 20:00 | NUR ---
ALERT SITTING UP ON SIDE OF BED DENIES PAIN OR NEEDS, SEE SHIFT ASSESSMENT, CALL LIGHT IN REACH
[2021-03-12 22:36] LABS: BILIRUBIN NEGATIVE (NEGATIVE); KETONE NEGATIVE mg/dL (< 1+); NITRITE NEGATIVE (NEGATIVE); PH 7.5 (5.0-8.0); SQUAMOUS EPITHELIAL <1 HPF (0-4); UROBILINOGEN NORMAL mg/dL (< 2); WHITE CELLS - URINE <1 HPF (0-4)
[2021-03-13 04:00] VITALS: BP 138/77
[2021-03-13 05:12] LABS: BASOPHILS 0.4 % (0-2); EOSINOPHILS 0.6 % (0-7); HEMATOCRIT 37.1 % (36.0-48.0); HEMOGLOBIN 11.6 g/dL (12-16); LYMPHOCYTES 24.1 % (15-50); MCH 26.3 pg (26.0-34.0); MCHC 31.2 g/dL (31.0-37.0); MCV 84.2 fL (80.0-100.0); MEAN PLATELET VOLUME 6.8 fL (7.4-10.4); NEUTROPHILS 67.9 % (40-80); PLATELET COUNT 600 10x3/uL (130-400); RDW 19.7 % (11.5-14.5)
[2021-03-13 05:44] LABS: ALBUMIN 2.8 g/dL (3.4-5.0); ANION GAP 5.2 mmol/L (8-16); BILIRUBIN - TOTAL 0.28 mg/dL (0.2-1.3); CALCIUM 8.8 mg/dL (8.5-10.1); CARBON DIOXIDE 36.5 mmol/L (21.0-32.0); CREATININE - SERUM 0.9 mg/dL (0.6-1.3); POTASSIUM - SERUM 4.7 mmol/L (3.5-5.1); PROTEIN - SERUM 6.5 g/dL (6.4-8.2)
[2021-03-13 08:41] VITALS: BP 112/73
--- NOTE | 2021-03-13 11:05 | NUR ---
walked 250 feet with walker cga
[2021-03-13] MEDS ORDERED: NICODERM CQ1 EAC3 TRANSDERM (13:12)
[2021-03-13] MEDS ORDERED: PERFOROMIS20 MCG/21 INH (13:12)
[2021-03-13] MEDS ORDERED: IPRAT-ALBUT 0.5-3 ML UPD (13:13)
[2021-03-13] MEDS ORDERED: PULMICORT0.5 MG/21 UPD (13:13)
[2021-03-13] MEDS ORDERED: TESSALON PERLE100 MG PO (13:13)
[2021-03-13] MEDS ORDERED: MUCINEX DM ER1 EAC1 PO (13:14)
[2021-03-13] MEDS ORDERED: FLUTICASONE PRO16 GM NASAL (13:15)
[2021-03-13] MEDS ORDERED: LEVAQUIN750 MG PO (13:16)
[2021-03-13] MEDS ORDERED: PREDNISONE10 MG PO (13:17)
[2021-03-13 13:42] VITALS: BP 110/70
--- NOTE | 2021-03-13 14:21 | NUR ---
DR. MOREIRA STATED OK FOR PATIENT TO GO HOME WITHOUT TRILOGY AT THIS TIME. PATIENT DOES NOT HAVE INSURANCE UNTIL March AVAILABLE.
--- NOTE | 2021-03-13 15:30 | NUR ---
DISCHARGE INSTRUCTIONS GIVEN. PT VERBALIZED UNDERSTANDING AND CONCERN OVER ABILITY TO PAY FOR MEDICATIONS. WAITING ON DAUGHTER TO ARRIVE.
--- NOTE | 2021-03-13 15:32 | NUR ---
OT NOTE: PT COMPLETED ADL MOB WITH SBA-CGA. PT COMPLETED TOILETING WITH SPV. PT COMPLETED DRESSING AT EOB WITH SPV. PT COMPLETED HAIR GROOMING WITH SPV. PT COMPLETED HYGIENE TASKS AT SINK LEVEL WITH SPV. [phone] THANK YOU,REINIER PHILLIP
--- NOTE | 2021-03-13 16:03 | NUR ---
PT WHEELED OUT ER EXIT AND DOWN TO FRONT ENTRANCE WHERE DAUGHTER AND GRAND KIDS WHERE WAITING IN A RED CAR.
--- NOTE | 2021-03-13 17:04 | MORECARE ---
CASE MANAGEMENT DISCHARGE SUMMARY PATIENT: ANÍBAL NAIR UNIT: [id number] ADM DATE: 03/06/21 AGE: 65 : 53 SEX: F ROOM/BED: D.2232 AUTHOR: CHAYA,DOC PHYSICIAN: REFERRING PHYSICIAN: BERTRAM TELLEZ MD DATE OF SERVICE: 03/13/21 Case Management Discharge Planning Summary COMMENTS ENTERED DATE: 03/12/21 15:59 CT COMMENT TYPE: Discharge Planning REVIEWER: Olya Caal CM asked Graciela with [employer] to see patient. CM received a call back from Shayy Killian and Graciela. Patient does have Medicare A only. She has BCBS with [employer] her employer it is a month to month policy. Patient hasn't worked enough in February to get insurance. She is over income for RHONDA and the only RHONDA she might qualify for is a spin down and that will only be good for 3 months. Patient has no benefits that will cover DME at this time. ENTERED DATE: 03/10/21 15:42 CT COMMENT TYPE: Discharge Planning REVIEWER: Shayy Grace Received call from [facility]anael for patient's trilogy, her insurance has termed. Natanael is checking to see what they can do and they will get back with us. CM to follow and assist as needed. ENTERED DATE: 03/09/21 17:18 CT COMMENT TYPE: Discharge Planning REVIEWER: Abdiaziz Garcia CM met with patient to complete DC plan and to evaluate needs. Patient stated that she readmitted because she fell attempting to sit on the bedside commode. Patient stated that she was unable to obtain her medications after last discharge and was not able to keep her follow up appointment due to the quick two re-admittance. Patient stated that she followed the dc instructions given to her. It appears that this readmission was due to a new condition. Patient lives independently with family and stated that her person to notify is her daughter, Madison Powell, . Patient stated that her home is safe and has electricity and running water. Patient stated that she has some issues with money at this time and may have problems paying for her medications. Patient stated that she fills her medications at [facility] [address]. Patient stated that her primary care physician is Dr. Figueroa. At discharge, the patient plans to return home and feels this is a safe discharge. CM discussed availability of home health, rehab services, and medical equipment. Patient declined SNF and IPR but would like Home Health Services through [place] and would like a nebulizer and Bedside Commode through [facility]. Patient stated that she has a walker and a "potty chair" but the chair is in disrepair and contributed to her fall. Patient stated that she has oxygen through [facility]. Patient voiced no other needs at this time and is satisfied with DC plan. Transportation provider at discharge will be with Madison. DC IMM delivered, explained, signed by the patient, and placed in chart. Signed form also left with the patient. CM will continue to follow and will assist as needed with dc plans/needs. ENTERED DATE: 03/09/21 13:02 CT COMMENT TYPE: Discharge Planning REVIEWER: Abdiaziz Garcia Spoke with Vanna of [facility] regarding Trilogy [employer]. Vanna stated that over the weekend she cannot get insurance authorization and she is unsure of the requirements for . Vanna requested progress notes, DME order, and demographics page. Will fax. CM will continue to follow and will assist as needed with dc plans/needs. DCP REVIEW SUMMARY ANTICIPATED D/C DATE: EXPECTED LOS : CASE STATUS: DCP Initiated INITIAL REVIEW: 03/05/2021 INITIAL REVIEWER: Abdiaziz Garcia FINAL DISCHARGE DISPOSITION: : FINAL REVIEWER: FINAL REVIEW DATE: DCP Focus Questions & Answers DCP Evaluation QUESTION: ANSWER Patient and/or caregiver agree upon recommended discharge plan? : Yes Family / Caregiver's ability to cope with chronic illness: : a. Adequate (ability to meet patient's medical needs, ensures patient attends medical appts.) Patient's current cognitive status: : *Oriented to person, place, situation, time and present Patient's ability to cope with chronic illness : d. No chronic illness Patient gives permission to discuss discharge plans with: (name, relationship and number) : Madison terrazas, Does the patient have the ability to pay for or attain post discharge needs / services? : Yes Functional screen assessment: : Basic needs can adequately be met by self Family / Caregiver's ability to cope with chronic illness: : a. Adequate (ability to meet patient's medical needs, ensures patient attends medical appts.) Physical Status: : Independent with ADL's Equipment needed for post hospitalization: : Nebulizer Equipment needed for post hospitalization: : Bedside Commode Is there a likelihood that the patient will require additional services to return to the preadmission environment? : No Living Arrangements: : Home with Extended Family Other Equipment comments: : TRILOGY Patient with capacity for self-care or can be cared for in same environment as prior to hospitalization? : Yes Baseline cognitive status: : *Oriented to person, place, situation, time and present Physical environment modification needed / anticipated for discharge: : No Medication Management: : Patient states can read and understand medication labels Medication Management: : Patient states can afford medications Pharmacy name(s): : [facility] on [address] Does Patient have transportation to get home and to follow-up medical appointments when discharged from the hospital? : Yes Would patient like to participate in any Care Coordination programs (if applicable): : Not applicable Does the patient have electricity at home? : Yes Does the patient have running water in their house? : Yes Equipment in use: : Walker - Rolling Equipment in use: : Bedside Commode Equipment agency name and contact information: : [facility] screen: : No mental health history DCP Re-evaluation QUESTION: ANSWER Would patient like to participate in any Care Coordination programs (if applicable): : Not applicable PATIENT: ANÍBAL NAIR ENCOUNTER: [id number] MEDICAL RECORD#: [id number] ADMISSION DATE: 03/06/2021 DISCHARGE DATE: 03/13/2021 ATTENDING MD: BERTRAM SCHWAB : AGE: 65 MARITAL STATUS: X DC PLAN ID: [id number] FACILITY: [facility] PRINTED ON: 03/13/21 17:04 CT All edits/amendments must be made on the electronic document DICTATION DATE: 03/13/211703 CUSTOMER DATA TECHNICIAN: ILIANA 03/13/211703 RPT#: [id number] DC DATE:03/13/21 STATUS: DIS IN [facility] [address] [place] [address] END OF REPORT
== END 2021-03-13 16:04 | disposition home or self-care (01) | DRG 981 ==
LOC: D.ER 01:23 → D.EDHOLD 02:17 → D.MS 02:17 → D.EDHOLD 02:17 → OBSVTIME 02:18 → D.MS 11:45
PROVIDERS: Emergency Medicine; Family Medicine; Internal Medicine Pulmonary Disease; Orthopaedic Surgery; ADMIT Emergency Medicine; ATTEND Emergency Medicine
PROC: 0PSH04Z Reposition Right Radius with Internal Fixation Device, Open Approach (ICD-10-PCS; principal; 2021-03-06)
DX: J96.22 Acute and chronic respiratory failure with hypercapnia (principal); J18.9 Pneumonia, unspecified organism; S52.501A Unspecified fracture of the lower end of right radius, initial encounter for closed fracture; J44.0 Chronic obstructive pulmonary disease with (acute) lower respiratory infection; J44.1 Chronic obstructive pulmonary disease with (acute) exacerbation; S52.611A Displaced fracture of right ulna styloid process, initial encounter for closed fracture; J96.21 Acute and chronic respiratory failure with hypoxia; W18.11XA Fall from or off toilet without subsequent striking against object, initial encounter; I25.10 Atherosclerotic heart disease of native coronary artery without angina pectoris; G47.33 Obstructive sleep apnea (adult) (pediatric); F17.200 Nicotine dependence, unspecified, uncomplicated; K21.9 Gastro-esophageal reflux disease without esophagitis; D64.9 Anemia, unspecified

== ENCOUNTER 2021-03-27 17:21 | Emergency (ER) | payer SELFPAY ==
[~2021-03-27] VITALS: Ht 162.6 cm; Wt 76.4 kg
[~2021-03-27 17:21] MED LIST changes: +FLUTICASONE PRO16 GM NASAL; +IPRAT-ALBUT 0.5-3 ML UPD; +LEVAQUIN750 MG PO; +MUCINEX DM ER1 EAC1 PO; +NICODERM CQ1 EAC3 TRANSDERM; +PERFOROMIS20 MCG/21 INH; +PREDNISONE10 MG PO; +PULMICORT0.5 MG/21 UPD; +TESSALON PERLE100 MG PO
[2021-03-27 17:24] VITALS: Ht 162.6 cm; Wt 76.4 kg
[2021-03-27 18:23] LABS: BASOPHILS 1.1 % (0-2); EOSINOPHILS 2.2 % (0-7); HEMATOCRIT 38.5 % (36.0-48.0); HEMOGLOBIN 12.2 g/dL (12-16); LYMPHOCYTES 26.5 % (15-50); MCH 26.6 pg (26.0-34.0); MCHC 31.7 g/dL (31.0-37.0); MCV 84.1 fL (80.0-100.0); MEAN PLATELET VOLUME 6.7 fL (7.4-10.4); MONOCYTES 7.4 % (2-11); NEUTROPHILS 62.8 % (40-80); RBC 4.58 10x6/uL (4.00-5.40); RDW 20.2 % (11.5-14.5); WBC 12.6 10x3/uL (4.8-10.8)
[2021-03-27 18:26] LABS: PLATELET COUNT 405 10x3/uL (130-400)
[2021-03-27 18:30] LABS: ANION GAP 10.7 mmol/L (8-16); CALCIUM 8.8 mg/dL (8.5-10.1); CARBON DIOXIDE 32.9 mmol/L (21.0-32.0); POTASSIUM - SERUM 3.6 mmol/L (3.5-5.1)
[2021-03-27 19:40] VITALS: BP 145/96
== END 2021-03-27 19:40 | disposition home or self-care (01) ==
LOC: D.ER 17:21
PROVIDERS: Emergency Medicine
DX: R03.1 Nonspecific low blood-pressure reading (principal); J44.9 Chronic obstructive pulmonary disease, unspecified